=== PATIENT | female | born 1935 | race Caucasian/White ===

== ENCOUNTER 2017-02-06 14:08 | Observation (INO) ==
--- OUTSIDE RECORDS SUMMARY | 2017-02-06 14:18 | External Medical Summary | Referral Summary ---
:1935 Author Organization [facility] Address [address] [place] [address] [place] [phone] Care Team Providers Name Role Phone Joby Beyer Primary Care Physician Encounter VC Date(s): 12/20/14 - 12/20/14 [facility] [place] [phone] [place] Discharge Diagnosis: Gross hematuria Discharge Disposition: 01-Home or Self Care Attending Physician: Tea Herr PA-C Admitting Physician: Tea Herr PA-C Vital Signs Most recent to oldest [Reference Range]: 1 Temperature Tympanic [36.6-38.1 degC] 36.5 degC *LOW* (12/20/14 8:01 AM) Peripheral Pulse Rate [60-100 bpm] 80 bpm (12/20/14 8:01 AM) Respiratory Rate [14-20 br/min] 18 br/min (12/20/14 8:01 AM) Blood Pressure [90-140/60-90 mmHg] 128/86 mmHg (12/20/14 8:01 AM) SpO2 96 % (12/20/14 8:01 AM) Problem List Condition Effective Dates Status Health Status Informant Adult-onset obesity(Confirmed) Active Afib(Confirmed) Active Benign essential Active hypertension(Confirmed) Chronic osteoarthritis(Confirmed) Active GERD without esophagitis(Confirmed) Active Adequate anticoagulation on Active anticoagulant therapy(Confirmed) Hyperlipidemia(Confirmed) Active Kidney disease(Confirmed) Active Kidney stones(Confirmed) Active Knee pain, left(Confirmed) Active Breast cancer(Confirmed) 1989 Active Breast cancer(Confirmed) 01/2002 Active Osteoarthritis(Confirmed) Active Overweight(Confirmed) Active Arm skin lesion, left(Confirmed) Active Allergies, Adverse Reactions, Alerts Substance Reaction Severity Status metoclopramide Adverse Reaction-combative Active Medications acetaminophen 500 mg, Oral, q6hr, as needed for pain, 0 Refill(s) Start Date: 09/24/13 Status: Orderedcarvedilol 6.25 mg oral tablet 1 tabs, Oral, BID, # 180 tabs, 1 Refill(s), Pharmacy: [id number], 1 tabs Oral BID Start Date: 09/27/13 Status: OrderedCentrum 1 tabs, Oral, Daily, 0 Refill(s) Start Date: 09/24/13 Status: OrderedCipro 250 mg oral tablet 250 mg 1 tabs, Oral, q12hr, X 7 days, # 14 tabs, 0 Refill(s), Pharmacy: [facility], 1 tabs Oral q12hr,x7 days Start Date: 12/20/14 Stop Date: 12/27/14 Status: OrderedCozaar 50 mg oral tablet 50 mg 1 tabs, Oral, BID, # 180 tabs, 1 Refill(s), Pharmacy: [facility], 1 tabs Oral BID Start Date: 12/14/14 Status: OrderedOsteo Bi-Flex 1 tabs, Oral, Daily, 0 Refill(s) Start Date: 09/24/13 Status: OrderedPhysical Therapy Physical Therapy, See Instructions, Eval and treat as indicated for knee pain and balance issues., #1 Each, 0 Refill(s) Start Date: 12/14/14 Status: OrderedPreservation - ocuvite eye Preservation - ocuvite eye, 0 Refill(s) Start Date: 12/20/14 Status: OrderedPriLOSEC OTC 20 mg, Oral, Daily, 0 Refill(s) Start Date: 09/24/13 Status: OrderedXarelto 20 mg oral tablet 20 mg 1 tabs, Oral, qPM, # 30 tabs, 0 Refill(s) Start Date: 07/26/14 Status: Ordered Results Urinalysis Most recent to oldest [Reference Range]: 1 UA Color Red *ABN* (12/20/14 8:35 AM) UA Appear Turbid 1 *ABN* (12/20/14 8:35 AM) UA pH [5.0-8.0] 5.5 (12/20/14 8:35 AM) UA Leuk Est [Negative] Trace *ABN* (12/20/14 8:35 AM) UA Nitrite [Negative] Negative (12/20/14 8:35 AM) UA Protein [Negative] Pos 2+ *ABN* (12/20/14 8:35 AM) UA Glucose [Negative] Negative (12/20/14 8:35 AM) UA Ketones [Negative] Negative (12/20/14 8:35 AM) UA Urobilinogen 0.2 mg/dL (12/20/14 8:35 AM) UA Bili [Negative] Negative (12/20/14 8:35 AM) UA Blood Pos 3+ *ABN* (12/20/14 8:35 AM) UA Spec Grav [1.003-1.030] 1.025 (12/20/14 8:35 AM) Type Clean Catch (12/20/14 8:35 AM) UA WBC [0-4] 20-50 *ABN* (12/20/14 8:35 AM) UA RBC [0-2 /HPF] >50 /HPF 2 *ABN* (12/20/14 8:35 AM) Epithelial Cells 2-5 (12/20/14 8:35 AM) 1Result Comment: Dipstick done on supernatant.2Result Comment: Packed field. Immunizations Vaccine Date Refusal Reason tetanus/diphth/pertuss (Tdap) adult/adol 10/11/14 influenza virus vaccine, inactivated 11/17/14 influenza virus vaccine, inactivated 11/17/14 influenza virus vaccine, inactivated 11/15/13 influenza virus vaccine, live 11/11/12 influenza virus vaccine, live 10/23/11 pneumococcal 23-polyvalent vaccine 07/17/01 tetanus-diphth toxoids (Td) adult/adol 07/09/01 Procedures Procedure Date Related Diagnosis Body Site Miniscus Removal 2009 Repair 2009 Esophageal Mass Removal 01/2002 Cholecystectomy 1998 Hysterectomy 1998 Lumpectomy 02/1989 Appendectomy Chemotherapy Mastectomy Tonsillectomy Social History Social History Type Response Smoking Status Former smoker Assessment and Plan Extracted from: Title: Ambulatory Patient Education Author: Tea Herr PA-C Date: 12/20/14 Family Medicine Hematuria Hematuria is blood in your urine. It can be caused by a bladder infection, kidney infection, prostate infection, kidney stone, or cancer of your urinary tract. Infections can usually be treated with med icine, and a kidney stone usually will pass through your urine. If neither of these is the cause of your hematuria, further workup to find out the reason may be needed. It is very important that you tell your health care provider about any blood you see in your urine, even if the blood stops without treatment or happens without causing pain. Blood in your urine that eubanks ppens and then stops and then happens again can be a symptom of a very serious condition. Also, pain is not a symptom in the initial stages of many urinary cancers. HOME CARE INSTRUCTIONS Drink lots of fluid, 34 quarts a day. If you have been diagnosed with an infection, cranberry juice is especially recommended, in addition to large amounts of water. Avoid caffeine, tea, and carbonated beverages because they tend to irritate the bladder. Avoid alcohol because it may irritate the prostate. Take all medicines as directed by your health care provider. If you were prescribed an antibiotic medicine, finish it all even if you start to feel better. If you have been diagnosed with a kidney stone, follow your health care provider's instructions regarding straining your urine to catch the stone. Empty your bladder often. Avoid holding urine for long periods of time. After a bowel movement, women should cleanse front to back. Use each tissue only once. Empty your bladder before and after sexual intercourse if you are a female. SEEK MEDICAL CARE IF: You develop back pain. You have a fever. You have a feeling of sickness in your stomach (nausea) or vomiting. Your symptoms are not better in 3 days. Return sooner if you are getting worse. SEEK IMMEDIATE MEDICAL CARE IF: You develop severe vomiting and are unable to keep the medicine down. You develop severe back or abdominal pain despite taking your medicines. You begin passing a large amount of blood or clots in your urine. You feel extremely weak or faint, or you pass out. MAKE SURE YOU: Understand these instructions. Will watch your condition. Will get help right away if you are not doing well or get worse. Document Released: 01/27/2006 Document Revised: 06/13/2014 Document Reviewed: 09/27/2013 [employer] Patient Information 2015 [employer]. This information is not intended to replace advice given to you by your health care provider. Make sure you discuss any questions you have with your health care provider. No follow up information was provided. Extracted from: Title: Office Visit Note Author: Tea Herr PA-C Date: 12/20/14 Assessment/Plan Gross hematuria I did discuss the case withDr. Beyer. He had suggested obtaining ultrasound and holding Xarelto for now. She already has anappt scheduled with the urologist on the . She is to keep that appt for now.Herurine did show that she had some WBC's as well , so will treat for UTI with cipro. She is advised to let us know by the end of her Cipro if the bleeding has stopped or if continues. Ifshe no longer has the hematuria, I advised going back onto the Xarelto. If it does not, follow up with urologist. Will call pt with results of US when available. Ordered: Office Visit Level 4 Est [id number] Hematuria seeabove. Ordered: US Transvaginal/Pelvic Complete Orders: ciprofloxacin, 250 mg 1 tabs, Oral, q12hr, X 7 days, # 14 tabs, 0 Refill(s), Pharmacy: 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
--- OUTSIDE RECORDS SUMMARY | 2017-02-06 14:18 | External Medical Summary | Referral Summary ---
:1935 Author Organization [facility] Address [address] [place] [address] [place] [phone] Care Team Providers Name Role Phone Joby Beyer Primary Care Physician Encounter VC Date(s): 03/09/15 - 03/09/15 [facility] [place] [phone] [place] Discharge Diagnosis: Urinary tract infection Discharge Disposition: 01-Home or Self Care Attending Physician: Tea Herr PA-C Admitting Physician: Tea Herr PA-C Vital Signs Most recent to oldest [Reference Range]: 1 Temperature Tympanic [36.6-38.1 degC] 35.9 degC *LOW* (03/09/15 1:26 PM) Peripheral Pulse Rate [60-100 bpm] 72 bpm (03/09/15 1:26 PM) Respiratory Rate [14-20 br/min] 20 br/min (03/09/15 1:26 PM) Blood Pressure [90-140/60-90 mmHg] 136/78 mmHg (03/09/15 1:26 PM) Problem List Condition Effective Dates Status Health Status Informant Adult-onset obesity(Confirmed) Active Afib(Confirmed) Active Benign essential Active hypertension(Confirmed) Chronic osteoarthritis(Confirmed) Active CKD (chronic kidney Active disease)(Confirmed) GERD without esophagitis(Confirmed) Active Adequate anticoagulation on Active anticoagulant therapy(Confirmed) Hyperlipidemia(Confirmed) Active Elevated blood sugar(Confirmed) Active Kidney disease(Confirmed) Active Kidney stones(Confirmed) Active [...] BID, # 180 tabs, 1 Refill(s), Pharmacy: [id number], 1 tabs Oral BID Start Date: 09/27/13 Status: OrderedCentrum 1 tabs, Oral, Daily, 0 Refill(s) Start Date: 09/24/13 Status: OrderedCipro 500 mg oral tablet 500 mg 1 tabs, Oral, q12hr, X 7 days, # 14 tabs, 0 Refill(s), Pharmacy: [facility] #[id number], 1 tabs Oral q12hr,x7 days Start Date: 03/09/15 Stop Date: 03/16/15 Status: OrderedCozaar 50 mg oral tablet 50 mg 1 tabs, Oral, BID, # 180 tabs, 1 Refill(s), Pharmacy: [facility], 1 tabs Oral BID Start Date: 12/14/14 Status: OrderedNorco 5 mg-325 mg oral tablet 1 tabs, Oral, q6hr, as needed for pain, # 60 tabs, 0 Refill(s) Start Date: 12/28/14 Status: OrderedOsteo Bi-Flex 1 tabs, Oral, Daily, [...] Refill(s) Start Date: 07/26/14 Status: Ordered Results No data available for this section Immunizations Vaccine Date Refusal Reason tetanus/diphth/pertuss (Tdap) adult/adol 10/11/14 influenza virus vaccine, inactivated 11/17/14 influenza virus vaccine, inactivated 11/17/14 influenza virus vaccine, inactivated 11/15/13 influenza virus vaccine, live 11/11/12 influenza virus vaccine, live 10/23/11 pneumococcal 23-polyvalent vaccine 07/17/01 tetanus-diphth toxoids (Td) adult/adol 07/09/01 Procedures Procedure Date Related Diagnosis Body Site Miniscus Removal 2008 Repair 2009 Esophageal Mass Removal 01/2002 Cholecystectomy 1998 Hysterectomy 1998 Lumpectomy 02/1989 Appendectomy Chemotherapy Colonoscopy Mastectomy Tonsillectomy Social History Social History Type Response Smoking Status Former smoker Assessment and Plan Extracted from: Title: Ambulatory Patient Education Author: Tea Herr PA-C Date: Family Medicine Urinary Tract Infection Urinary tract infections (UTIs) can develop anywhere along your urinary tract. Your urinary tract is your body's drainage system for removing wastes and extra water. Your urinary tract includes two kidn eys, two ureters, a bladder, and a urethra. Your kidneys are a pair of haynes- shaped organs. Each kidney is about the size of your fist. They are located below your ribs, one on each side of your spine. CAUSES Infections are caused by microbes, which are microscopic organisms, including fungi, viruses, and bacteria. These organisms are so small that they can only be seen through a microscope. Bacteria are the microbes that most commonly cause UTIs. SYMPTOMS Symptoms of UTIs may vary by age and gender of the patient and by the location of the infection. Symptoms in young women typically include a frequent and intense urge to urinate and a painful, burning f eeling in the bladder or urethra during urination. Older women and men are more likely to be tired, shaky, and weak and have muscle aches and abdominal pain. A fever may mean the infection is in your ki dneys. Other symptoms of a kidney infection include pain in your back or sides below the ribs, nausea, and vomiting. DIAGNOSIS To diagnose a UTI, your caregiver will ask you about your symptoms. Your caregiver also will ask to provide a urine sample. The urine sample will be tested for bacteria and white blood cells. White bloo d cells are made by your body to help fight infection. TREATMENT Typically, UTIs can be treated with medication. Because most UTIs are caused by a bacterial infection, they usually can be treated with the use of antibiotics. The choice of antibiotic and length of edlon atment depend on your symptoms and the type of bacteria causing your infection. HOME CARE INSTRUCTIONS If you were prescribed antibiotics, take them exactly as your caregiver instructs you. Finish the medication even if you feel better after you have only taken some of the medication. Drink enough water and fluids to keep your urine clear or pale yellow. Avoid caffeine, tea, and carbonated beverages. They tend to irritate your bladder. Empty your bladder often. Avoid holding urine for long periods of time. Empty your bladder before and after sexual intercourse. After a bowel movement, women should cleanse from front to back. Use each tissue only once. SEEK MEDICAL CARE IF: You have back pain. You develop a fever. Your symptoms do not begin to resolve within 3 days. SEEK IMMEDIATE MEDICAL CARE IF: You have severe back pain or lower abdominal pain. You develop chills. You have nausea or vomiting. You have continued burning or discomfort with urination. MAKE SURE YOU: Understand these instructions. Will watch your condition. Will get help right away if you are not doing well or get worse. Document Released: 11/06/2005 Document Revised: 07/28/2012 Document Reviewed: 03/06/2012 [facility] Patient Information 2015 [employer]. This information is not intended to replace advice given to you by your health care provider. Make sure you discuss any questions you have with your health care provider. No follow up information was provided. Extracted from: Title: Office Visit Note- UTI Author: Tea Herr PA-C Date: 03/09/15 Assessment/Plan Urinary tract infection Will treat with Cipro, and pt may continue with AZO just for 2 more days if necessary. Pt does get these recurrently, and she is wanting to a repeat UA after her abx to documen t clearance. D/w pt that we will do a urine culture, and if it shows susceptibility and she is not having sx that it should be resolved and repeat UA not needed. If urine culture contaminated or not-sheree pardo, may repeat UA 3 days after done with cipro. Pt advised to push fluids. Ordered: Office Visit Level 3 Est [id number] Orders: ciprofloxacin, 500 mg 1 tabs, Oral, q12hr, X 7 days, # 14 tabs, 0 Refill(s), Pharmacy: [id number], 1 tabs Oral q12hr,x7 days
--- OUTSIDE RECORDS SUMMARY | 2017-02-06 14:18 | External Medical Summary | Referral Summary ---
:1935 Author [facility] Address [address] [place] [address] [place] [phone] Care Team Providers Name Role Phone Joby Beyer Primary Care Physician Encounter VC Date(s): 11/17/14 - 11/17/14 [facility] [address] [place] [phone] [place] Discharge Disposition: 01-Home or Self Care Attending Physician: Joby Beyer MD Admitting Physician: Joby Beyer MD Vital Signs Most recent to oldest [Reference Range]: 1 Blood Pressure [90-140/60-90 mmHg] 140/90 mmHg (11/17/14 1:05 PM) Problem List Condition Effective Dates Status [...] BID, # 180 tabs, 1 Refill(s), Pharmacy: [facility], 1 tabs Oral BID Start Date: 09/27/13 Status: OrderedCentrum 1 tabs, Oral, Daily, 0 Refill(s) Start Date: 09/24/13 Status: OrderedCozaar 50 mg oral tablet 50 mg 1 tabs, Oral, BID, # 180 tabs, 1 Refill(s), Pharmacy: [facility], 1 tabs Oral BID [...] Extracted from: Title: Ambulatory Patient Education Author: Joby Beyer MD Date: Family Medicine Breast Biopsy A breast biopsy is a procedure where a sample of breast tissue is removed from your breast. The tissue is examined under a microscope to see if cancerous cells are present. A breast biopsy is done when there is: Any undiagnosed breast mass (tumor). Nipple abnormalities, dimpling, crusting, or ulcerations. Abnormal discharge from the nipple, especially blood. Redness, swelling, and pain of the breast. Calcium deposits (calcifications) or abnormalities seen on a mammogram, ultrasound result, or results of magnetic resonance imaging (MRI). Suspicious changes in the breast seen on your mammogram. If the tumor is found to be cancerous (malignant), a breast biopsy can help to determine what the best treatment is for you. There are many different types of breast biopsies. Talk to your caregiver about your options and which type is best for you. LET YOUR CAREGIVER KNOW ABOUT: Allergies to food or medicine. Medicines taken, including vitamins, herbs, eyedrops, fvov-ygs-wohokoi medicines, and creams. Use of steroids (by mouth or creams). Previous problems with anesthetics or numbing medicines. History of bleeding problems or blood clots. Previous surgery. Other health problems, including diabetes and kidney problems. Any recent colds or infections. Possibility of , if this applies. RISKS AND COMPLICATIONS Bleeding. Infection. Allergy to medicines. Bruising and swelling of the breast. Alteration in the shape of the breast. Not finding the lump or abnormality. Needing more surgery. BEFORE THE PROCEDURE Arrange for someone to drive you home after the procedure. Do not smoke for 2 weeks before the procedure. Stop smoking, if you smoke. Do not drink alcohol for 24 hours before procedure. Wear a good support bra to the procedure. PROCEDURE You may be given a medicine to numb the breast area (local anesthesia) or a medicine to make you sleep (general anesthesia) during the procedure. The following are the different types of biopsies that can be performed. Fine-needle aspirationA thin needle is attached to a syringe and inserted into the breast lump. Fluid and cells are removed and then looked at under a microscope. If the breast lump cannot be fe lt, an ultrasound may be used to help locate the lump and place the needle in the correct area. Core needle biopsyA wide, hollow needle (core needle) is inserted into the breast lump 36 times to get tissue samples or cores. The samples are removed. The needle is usually placed in the correct area by using an ultrasound or X-ray. Stereotactic biopsyX-ray equipment and a computer are used to analyze X -ray pictures of the breast lump. The computer then finds exactly where the core needle needs to be inserted. Tissue samples are removed. Vacuum-assisted biopsyA small incision (less than inch) is made in your breast. A biopsy device that includes a hollow needle and vacuum is passed through the incision and into the breast tis marie. The vacuum gently draws abnormal breast tissue into the needle to remove it. This type of biopsy removes a larger tissue sample than a regular core needle biopsy. No stitches are needed, and there is usually little scarring. Ultrasound-guided core needle biopsyA high frequency ultrasound helps guide the core needle to the area of the mass or abnormality. An incision is made to insert the needle. Tissue samples are removed. Open biopsyA larger incision is made in the breast. Your caregiver will attempt to remove the whole breast lump or as much as possible. AFTER THE PROCEDURE You will be taken to the recovery area. If you are doing well and have no problems, you will be allowed to go home. You may notice bruising on your breast. This is normal. Your caregiver may apply a pressure dressing on your breast for 2448 hours. A pressure dressing is a bandage that is wrapped tightly around the chest to stop fluid from collecting underneath tissues. Document Released: 01/27/2006 Document Revised: 05/24/2013 Document Reviewed: 02/27/2012 [facility] Patient Information 2015 [facility]aryConstant Contact, [facility]. This information is not intended to replace advice given to you by your health care provider. Make sure you discuss any questions you have with your health care provider. No follow up information was provided. Extracted from: Title: Office Visit Note Author: Joby Beyer MD Date: 11/17/14 Assessment/Plan Benign essential hypertension This issue is stable and appropriate refills, lab, and f/u have been discussed. The patient reports their blood pressure has been stable at home and is not having an y significant or related problems. There has been no chest pain, chest pressure , soa/[place]عر[place]. Breast cancer This issue is stable and appropriate refills, lab, and f/u have been discussed. Finger laceration The patient's issue is nearly or completely resolved. There is no further issues or testing desired by them at this time. Sutures removed. Routine wound care. Tdap at [facility] on11/05. Visit for suture removal See above. The patient was given the vaccines requested per protocol and according to those needed for school/family/college/ etc. Flu vaccine given.
--- OUTSIDE RECORDS SUMMARY | 2017-02-06 14:18 | External Medical Summary | Referral Summary ---
:1935 Author Organization [facility] Address [address] [place] [address] [place] [phone] Care Team Providers Name Role Phone Joby Beyer Primary Care Physician Encounter VC Date(s): 01/13/15 - 01/13/15 [facility] [place] [phone] [place] Discharge Disposition: 01-Home or Self Care Attending Physician: Joby Beyer MD Admitting Physician: Joby Beyer MD Vital Signs Most recent to oldest [Reference Range]: 1 Blood Pressure [90-140/60-90 mmHg] 158/80 mmHg *HI* (01/13/15 8:27 AM) Problem List Condition Effective Dates Status [...] BID, # 180 tabs, 1 Refill(s), Pharmacy: [id number], 1 tabs Oral BID Start Date: 09/27/13 Status: OrderedCentrum 1 tabs, Oral, Daily, 0 Refill(s) Start Date: 09/24/13 Status: OrderedCozaar 50 mg oral tablet 50 mg 1 tabs, Oral, BID, # 180 tabs, 1 Refill(s), Pharmacy: [facility], 1 tabs Oral BID [...] Refill(s) Start Date: 07/26/14 Status: Ordered Results Chemistry Most recent to oldest [Reference Range]: 1 Sodium Lvl [135-144 mEq/L] 141 mEq/L (01/13/15 9:28 AM) Potassium Lvl [3.5-5.2 mEq/L] 4.0 mEq/L (01/13/15 9:28 AM) Chloride [99-111 mEq/L] 108 mEq/L (01/13/15 9:28 AM) CO2 [22-31 mEq/L] 24 mEq/L (01/13/15 9:28 AM) AGAP [3-20] 9 (01/13/15 9:28 AM) BUN [10-20 mg/dL] 19 mg/dL (01/13/15 9:28 AM) Glucose Lvl [70-99 mg/dL] 96 mg/dL (01/13/15 9:28 AM) Creatinine Lvl [0.57-1.11 mg/dL] 0.79 mg/dL (01/13/15 9:28 AM) eGFR [>60 mL/min] >60 mL/min 1 (01/13/15 9:28 AM) Calcium Lvl [8.9-10.5 mg/dL] 9.3 mg/dL (01/13/15 9:28 AM) 1Result Comment: Multiply eGFR results by 1.21 for race.Urinalysis Most recent to oldest [Reference Range]: 1 UA Color Yellow (01/13/15 9:40 AM) UA Appear Clear (01/13/15 9:40 AM) UA pH [5.0-8.0] 6.0 (01/13/15 9:40 AM) UA Leuk Est [Negative] Negative (01/13/15 9:40 AM) UA Nitrite [Negative] Negative (01/13/15 9:40 AM) UA Protein [Negative] Negative (01/13/15 9:40 AM) UA Glucose [Negative] Negative (01/13/15 9:40 AM) UA Ketones [Negative] Negative (01/13/15 9:40 AM) UA Urobilinogen [<1.0 mg/dL] 0.2 mg/dL (01/13/15 9:40 AM) UA Bili [Negative] Negative (01/13/15 9:40 AM) UA Blood [Negative] Negative (01/13/15 9:40 AM) UA Spec Grav [1.003-1.030] 1.019 (01/13/15 9:40 AM) Type Voided (01/13/15 9:40 AM) Immunizations Vaccine Date Refusal Reason tetanus/diphth/pertuss (Tdap) [...] Joby Beyer MD Date: Family Medicine Breast Cancer Survivor Follow-up Breast cancer treatment aims to get rid of all cancer cells, but sometimes a few remain in the body. These cells can then grow and cause the cancer to return (recur). If this happens, the goal is to fin d the cancer as soon as possible. Cancer can recur just a few months after treatment or years later. Most cases of recurrent breast cancer develop 35 years after treatment. WILL MY CANCER RETURN? There is no way to know if your breast cancer will return. However, your chance of developing recurrent breast cancer is greater if you had: Breast cancer before 60 years of age. Breast cancer that involved the lymph nodes. A tumor that was bigger than 2 inches (5 cm). A high-grade tumor. These are tumors that grow more quickly than other types of tumors. A close tumor margin. This means the space between the tumor and normal, noncancerous cells was small. Inflammatory breast cancer. HER2 cancer. Surgery to remove the tumor but not the entire breast (lumpectomy) and no radiation therapy. SYMPTOMS OF RECURRENT BREAST CANCER Examine your breasts every month. You may find it helpful to do this on the same day each month and yamile your calendar as a reminder. Let your health care provider know immediately if you have any signs or symptoms of recurrent breast cancer. Signs and symptoms of recurrent breast cancer vary. It depends on where the cancer is and how the original cancer was treated. Symptoms of a cancer that comes back in the same spot (local recurrence) after a lumpectomy, or a recurrence in the opposite breast may include: A new lump or thickening in the breast. A change in the way the skin of the breast looks (such as a rash, dimpling , or wrinkling). Redness or swelling of the breast. Changes in the nipple (such as it may be red, puckered, swollen, or leaking fluid). Symptoms of a recurrence after breast removal surgery (mastectomy) may include: A lump or thickening under the skin. A thickening around the mastectomy scar. Symptoms of a cancer that comes back in the lymph nodes near the breast ( regional recurrence) may include: A lump under the arm or above the collarbone. Swelling of the arm. Pain in the arm, shoulder, or chest. Numbness in the hand or arm. Symptoms of cancer that comes back in an area of the body far away from the original cancer site (distant recurrence) may include: A cough that does not go away. Trouble breathing or shortness of breath. Pain in the bones or the chest. This is pain that lasts or does not improve with rest and medicine. Headaches. Sudden vision problems. Dizziness. Nausea or vomiting. Weight loss. Persistent abdominal pain. Changes in bowel movements or blood in the stool. Yellowing of the skin or eyes (jaundice). Blood in the urine or bloody vaginal discharge. FOLLOWING UP WITH YOUR HEALTH CARE PROVIDER Decide who your primary health care provider will be. Most people continue to see their cancer specialist (oncologist) every 36 months for the first year after cancer treatment. At some point, you ma y want to go back to seeing a family health care provider instead of your oncologist for regular checkups. Many women do this about 1 year after getting a breast cancer diagnosis. You would still need t o see your oncologist as directed. You should also: Keep a schedule of appointments for the tests and exams you need ( including physical exams, breast exams, and exams of the lymph nodes). For the first 3 years after being treated for breast cancer, see your health care provider every 36 months. In the fourth and fifth years after being treated for breast cancer, see your health care provider every 612 months. From 5 years on after your breast cancer treatment, see your health care provider at least once a year. Continue to have regular breast X-rays (mammograms), even if you had a mastectomy. Get a mammogram 1 year after the mammogram that first detected breast cancer. Get a mammogram every 612 months after that or as often as your health care provider suggests. Have a pelvic exam every year or as often as your health care provider suggests. Some tests are not recommended for routine screening. Someone recovering from breast cancer does not need to have these tests if there are no problems. The tests have risks, such as radiation expos ure, and can be costly. The risks of these tests are thought to be greater than the benefits: Blood tests. Chest X-rays. Bone scans. Liver ultrasound. CT. MRI. Positron emission tomography (PET scan). SEEK MEDICAL CARE IF: You have any signs or symptoms of recurrent breast cancer. You are taking a medicine prescribed to treat your breast cancer and have vaginal bleeding. You discover new lumps in your breast. You have headaches, bone, chest, or abdominal pain. You have shortness of breath. You have a cough that does not go away. You have discharge from your nipple. You have a rash on your breast. SEEK IMMEDIATE MEDICAL CARE IF: You have trouble breathing. You have chest pain. Document Released: 09/25/2011 Document Revised: 02/01/2014 Document Reviewed: 12/03/2013 ExitCare Patient Information 2015 [employer]. This information is not intended to replace advice given to you by your health care provider. Make sure you discuss any questions you have with your health care provider. No follow up information was provided. Extracted from: Title: Office Visit Note Author: Joby Beyer MD Date: 01/13/15 Assessment/Plan Adequate anticoagulation on anticoagulant therapy This issue was reviewed, appears stable, and current therapy continued except as mentioned. Appropriate lab was reviewed from the most recent approp riate entry and lab was ordered if needed in the cpoe/nursing orders, and follow up recommended generally in 90 days and no later then six months. Stable on xarelto. Benign essential hypertension This issue was reviewed, appears stable, and current therapy continued except as mentioned. Appropriate lab was reviewed from the most recent appropriate entry and lab was ordered if needed in the cpoe/nursing orders, and follow up recommended generally in 90 days and no later then six months. The patient reports their blood pressure has been stable at home and i s not having any significant or related problems. There has been no chest pain , chest pressure, soa/العراقي. Breast cancer This issue was reviewed, appears stable, and current therapy continued except as mentioned. Appropriate lab was reviewed from the most recent appropriate entry and lab was ordered if n eeded in the cpoe/nursing orders, and follow up recommended generally in 90 days and no later then six months. Seeing [address] Blair. Gets regular CT scans and has one pending. Elevated blood sugar This issue was reviewed, appears stable, and current therapy continued except as mentioned. Appropriate lab was reviewed from the most recent appropriate entry and lab was order ed if needed in the cpoe/nursing orders, and follow up recommended generally in 90 days and no later then six months. Lab reviewed. Kidney disease This issue was reviewed, appears stable, and current therapy continued except as mentioned. Appropriate lab was reviewed from the most recent appropriate entry and lab was ordered if needed in the cpoe/nursing orders, and follow up recommended generally in 90 days and no later then six months. Cr at [facility] was 1.5. Kidney stones The patient's issue is nearly or completely resolved. There is no further issues or testing desired by them at this time. Stone analysis at [facility] still pending? Declines urology con sult at this time. UA, lab, KUB pending to look for any residula KS/bladder stone. To Urology for anything retained. Total time spent over 35 minutes today in coordination. Likely she will have aCT scan anyway with her cancer surveillance. The patient's outside physician records were reviewed. Any pertinent outside records, lab, and xrays were also reviewed if available. IMPRESSION: 1. Idiirkmb-iy-zzdvzh right hydronephrosis and right hydroureter. This right obstructive uropathy is secondary to some right distal ureteral calculi, one measuring approximately 3 mm in the right distal ureter and the second measuring approximately 8 mm at the right ureterovesical junction. Associated right perinephric stranding is seen. 2. Stable 3 cm heterogeneously enhancing right adrenal mass. 3. Senescent abdomen with additional nonemergent findings as described above. [1] Ordered: Basic Metabolic Panel Urinalysis with Culture if Indicated XR Abdomen AP Osteoarthritis This issue was reviewed, appears stable, and current therapy continued except as mentioned. Appropriate lab was reviewed from the most recent appropriate entry and lab was ordered if needed in the cpoe/nursing orders, and follow up recommended generally in 90 days and no later then six months.
--- OUTSIDE RECORDS SUMMARY | 2017-02-06 14:19 | External Medical Summary | Referral Summary ---
:1935 Author [facility] Address [address] [place] [address] [place] [phone] Care Team Providers Name Role Phone Joby Beyer Primary Care Physician Encounter VC Date(s): 12/11/15 - 12/11/15 [facility] [place] [phone] [place] Discharge Disposition: 01-Home or Self Care Attending Physician: Joby Beyer MD Admitting Physician: Joby Beyer MD Vital Signs No data available for this section Problem List Condition Effective Dates Status Health [...] pain, 0 Refill(s) Start Date: 09/24/13 Status: OrderedArthritis Pain 650 mg, Oral, BID, 0 Refill(s) Start Date: 09/06/15 Status: Orderedcarvedilol 12.5 mg oral tablet 12.5 mg 1 tabs, Oral, BID, # 180 tabs, 1 Refill(s), Pharmacy: [facility], 1 tabs Oral BID Start Date: 09/06/15 Status: OrderedCentrum 1 tabs, Oral, Daily, 0 Refill(s) Start Date: 09/24/13 Status: OrderedCozaar 50 mg oral tablet 50 mg 1 tabs, Oral, BID, # 180 tabs, 1 Refill(s), Pharmacy: [facility], 1 tabs Oral BID Start Date: 09/06/15 Status: OrderedOsteo Bi-Flex 1 tabs, Oral, Daily, [...] (Tdap) adult/adol 10/11/14 influenza virus vaccine, inactivated 12/11/15 influenza virus vaccine, inactivated 11/17/14 influenza virus vaccine, inactivated 11/17/14 influenza virus vaccine, inactivated 11/15/13 influenza virus vaccine, live 11/11/12 influenza virus vaccine, live 10/23/11 pneumococcal 13-valent conjugate vaccine 09/06/15 pneumococcal 23-polyvalent vaccine 07/17/01 tetanus-diphth toxoids (Td) adult/adol 07/09/01 Procedures Procedure Date Related Diagnosis Body Site Miniscus Removal 2009 Repair 2009 Esophageal Mass Removal 01/2002 Cholecystectomy 1998 Hysterectomy 1998 Lumpectomy 02/1989 Appendectomy Chemotherapy Colonoscopy Mastectomy Tonsillectomy Social History Social History Type Response Smoking Status Former smoker Assessment and Plan No data available for this section
--- OUTSIDE RECORDS SUMMARY | 2017-02-06 14:19 | External Medical Summary | Referral Summary ---
:1935 Author Organization [facility] Address [address] [place] [address] [place] [phone] Care Team Providers Name Role Phone Joby Beyer Primary Care Physician Encounter VC Date(s): 12/14/14 - 12/14/14 [facility] [address] [place] [phone] [place] Discharge Disposition: 01-Home or Self Care Attending Physician: Joby Beyer MD Admitting Physician: Joby Beyer MD Vital Signs Most recent to oldest [Reference Range]: 1 Blood Pressure [90-140/60-90 mmHg] 128/80 mmHg (12/14/14 9:05 AM) Problem List Condition Effective Dates Status [...] BID, # 180 tabs, 1 Refill(s), Pharmacy: [id number], 1 tabs Oral BID Start Date: 09/27/13 Status: OrderedCentrum 1 tabs, Oral, Daily, 0 Refill(s) Start Date: 09/24/13 Status: OrderedCozaar 50 mg oral tablet 50 mg 1 tabs, Oral, BID, # 180 tabs, 1 Refill(s), Pharmacy: [facility], 1 tabs Oral BID Start Date: 12/14/14 Status: OrderedOsteo Bi-Flex 1 tabs, Oral, Daily, 0 Refill(s) Start Date: 09/24/13 Status: OrderedPhysical Therapy Physical Therapy, See Instructions, Eval and treat as indicated for knee pain and balance issues., #1 Each, 0 Refill(s) Start Date: 12/14/14 Status: OrderedPriLOSEC OTC 20 mg, Oral, Daily, [...] Author: Joby Beyer MD Date: Family Medicine Arthralgia Your caregiver has diagnosed you as suffering from an arthralgia. Arthralgia means there is pain in a joint. This can come from many reasons including: Bruising the joint which causes soreness (inflammation) in the joint. Wear and tear on the joints which occur as we grow older (osteoarthritis). Overusing the joint. Various forms of arthritis. Infections of the joint. Regardless of the cause of pain in your joint, most of these different pains respond to anti-inflammatory drugs and rest. The exception to this is when a joint is infected, and these cases are treated with antibiotics, if it is a bacterial infection. HOME CARE INSTRUCTIONS Rest the injured area for as long as directed by your caregiver. Then slowly start using the joint as directed by your caregiver and as the pain allows. Crutches as directed may be useful if the an kles, knees or hips are involved. If the knee was splinted or casted, continue use and care as directed. If an stretchy or elastic wrapping bandage has been applied today, it should be removed and re-ap plied every 3 to 4 hours. It should not be applied tightly, but firmly enough to keep swelling down. Watch toes and feet for swelling, bluish discoloration, coldness, numbness or excessive pain. If any of these problems (symptoms) occur, remove the obi bandage and re-apply more loosely. If these symptoms persist, contact your caregiver or return to this location. For the first 24 hours, keep the injured extremity elevated on pillows while lying down. Apply ice for 15-20 minutes to the sore joint every couple hours while awake for the first half day. Then 03-04 times per day for the first 48 hours. Put the ice in a plastic bag and place a towel between the bag of ice and your skin. Wear any splinting, casting, elastic bandage applications, or slings as instructed. Only take auju-zoj-ebuxdys or prescription medicines for pain, discomfort , or fever as directed by your caregiver. Do not use aspirin immediately after the injury unless instructed by your physicia n. Aspirin can cause increased bleeding and bruising of the tissues. If you were given crutches, continue to use them as instructed and do not resume weight bearing on the sore joint until instructed. Persistent pain and inability to use the sore joint as directed for more than 2 to 3 days are warning signs indicating that you should see a caregiver for a follow-up visit as soon as possible. Initiall y, a hairline fracture (break in bone) may not be evident on X-rays. Persistent pain and swelling indicate that further evaluation, non-weight bearing or use of the joint (use of crutches or slings as i nstructed), or further X-rays are indicated. X-rays may sometimes not show a small fracture until a week or 10 days later. Make a follow-up appointment with your own caregiver or one to whom we have ref erred you. A radiologist (specialist in reading X-rays) may read your X-rays. Make sure you know how you are to obtain your X-ray results. Do not assume everything is normal if you do not hear from us. SEEK MEDICAL CARE IF: Bruising, swelling, or pain increases. SEEK IMMEDIATE MEDICAL CARE IF: Your fingers or toes are numb or blue. The pain is not responding to medications and continues to stay the same or get worse. The pain in your joint becomes severe. You develop a fever over 102 F (38.9 C). It becomes impossible to move or use the joint. MAKE SURE YOU: Understand these instructions. Will watch your condition. Will get help right away if you are not doing well or get worse. Document Released: 01/27/2006 Document Revised: 04/20/2012 Document Reviewed: 09/14/2008 ExitCare Patient Information 2015 [employer]. This information is not intended to replace advice given to you by your health care provider. Make sure you discuss any questions you have with your health care provider. No follow up information was provided. Extracted from: Title: Office Visit Note Author: Joby Beyer MD Date: 12/14/14 Assessment/Plan Arm skin lesion, left To Dr. RAMIREZ for removal. RefusedDerm. Benign essential hypertension This issue was reviewed, appears stable, and current therapy continued accept as mentioned. Appropriate lab was reviewed from the most recent entry and lab ordered in t he cpoe/nursing orders, and follow up arranged. The patient reports their blood pressure has been stable at home and is not having any significant or related problems. There has been no chest pain, chest pressure, soa/العراقي. Breast cancer The patient's issue is nearly or completely resolved. There is no further issues or testing desired by them at this time. Knee pain, left To Dr. Tay. She declined other options. Osteoarthritis This issue was reviewd, appears stable, and current therapy continued accept as mentioned. Appropriate lab was reviewed from the most recent entry and lab ordered in the cpoe/nursing orders, and follow up arranged. Overweight Diet and exercise as tolerated and feasible. Consider medication when interested. Orders: losartan, 50 mg 1 tabs, Oral, BID, # 180 tabs, 1 Refill(s), Pharmacy : [facility], 1 tabs Oral BID Misc Medication, Physical Therapy, See Instructions, Eval and treat as indicated for knee pain and balance issues., # 1 Each, 0 Refill(s) Addendum by Joby Beyer MD on She did agree to a PT script/therapy for left December 14, 2014 09:48:20 [employer] knee pain.
--- OUTSIDE RECORDS SUMMARY | 2017-02-06 14:19 | External Medical Summary | Referral Summary ---
:1935 Author Organization [facility] Address [address] [place] [address] [place] [phone] Care Team Providers Name Role Phone Joby Beyer Primary Care Physician Encounter VC Date(s): 01/31/15 - 01/31/15 [facility] [address] [place] [address] [place] [phone] [place] Discharge Diagnosis: Visit for suture removal Discharge Disposition: 01-Home or Self Care Attending Physician: Gloria Jolly APRN Admitting Physician: Gloria Jolly APRN Vital Signs Most recent to oldest [Reference Range]: 1 Temperature Tympanic [36.6-38.1 degC] 36.4 degC *LOW* (01/31/15 9:54 AM) Problem List Condition Effective Dates Status [...] BID, # 180 tabs, 1 Refill(s), Pharmacy: [id number], 1 tabs Oral BID Start Date: 09/27/13 Status: OrderedCentrum 1 tabs, Oral, Daily, 0 Refill(s) Start Date: 09/24/13 Status: OrderedCozaar 50 mg oral tablet 50 mg 1 tabs, Oral, BID, # 180 tabs, 1 Refill(s), Pharmacy: [facility], 1 tabs Oral BID [...] smoker Assessment and Plan Extracted from: Title: Office Visit Note Author: Gloria Jolly [employer] Date: 01/31/15 Assessment/Plan 1.Visit for suture removal 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 Sutures removed without difficulty and antibiotic ointment applied. I would suggest you make an appointmentfor excision of thelesion on the right forearmat your convenience. Ordered: Postoperative Est [id number]
--- OUTSIDE RECORDS SUMMARY | 2017-02-06 14:19 | External Medical Summary | Referral Summary ---
:1935 Author Organization [facility] Address [address] [place] [address] [place] [phone] Care Team Providers Name Role Phone KatymarvJoby Primary Care Physician Encounter VC Date(s): 07/26/14 - 07/26/14 [facility] [place] [phone] [place] Discharge Diagnosis: Bruising Discharge Disposition: 01-Home or Self Care Attending Physician: Merari Reyes APRN Admitting Physician: Merari Reyes APRN Vital Signs Most recent to oldest [Reference Range]: 1 Temperature Tympanic [36.6-38.1 degC] 36.2 degC *LOW* (07/26/14 2:48 PM) Peripheral Pulse Rate [60-100 bpm] 72 bpm (07/26/14 2:48 PM) Blood Pressure [90-140/60-90 mmHg] 128/66 mmHg (07/26/14 2:48 PM) Problem List Condition Effective Dates Status [...] BID, # 180 tabs, 1 Refill(s), Pharmacy: [id number], 1 tabs Oral BID Start Date: 09/27/13 Status: OrderedCentrum 1 tabs, Oral, Daily, 0 Refill(s) Start Date: 09/24/13 Status: OrderedCozaar 50 mg oral tablet 50 mg 1 tabs, Oral, BID, # 180 tabs, 1 Refill(s), Pharmacy: [facility], 1 tabs [...] Diagnosis Body Site Miniscus Removal 2008 Repair 2008 Esophageal Mass Removal 01/2002 Cholecystectomy 1998 Hysterectomy 1998 Lumpectomy 02/1989 Appendectomy Chemotherapy Colonoscopy Mastectomy Tonsillectomy Social History Social History Type Response Smoking Status Former smoker Assessment and Plan No data available for this section
--- OUTSIDE RECORDS SUMMARY | 2017-02-06 14:19 | External Medical Summary | Referral Summary ---
:1935 Author Organization [facility] Address [address] [place] [address] [place] [id number] Care Team Providers Name Role Phone Joby Beyer Primary Care Physician Encounter [facility] [phone] Date(s): 09/06/15 - 09/06/15 [address] [facility] [address] [place] [phone] Discharge Diagnosis: Afib Discharge Diagnosis: GERD without esophagitis Discharge Diagnosis: Benign essential hypertension Discharge Diagnosis: Encounter for immunization Discharge Diagnosis: Breast cancer Discharge Disposition: 01-Home or Self Care Attending Physician: Tea Herr PA-C Admitting Physician: Tea Herr PA-C Vital Signs Most recent to oldest [Reference Range]: 1 Peripheral Pulse Rate [60-100 bpm] 64 bpm (09/06/15 8:47 AM) Blood Pressure [90-140/60-90 mmHg] 122/68 mmHg (09/06/15 8:47 AM) Problem List Condition Effective Dates Status [...] BID, # 180 tabs, 1 Refill(s), Pharmacy: [facility], 1 tabs Oral BID Start Date: 09/06/15 Status: OrderedCentrum 1 tabs, Oral, Daily, 0 Refill(s) Start Date: 09/24/13 Status: OrderedCozaar 50 mg oral tablet 50 mg 1 tabs, Oral, BID, # 180 tabs, 1 Refill(s), Pharmacy: [facility], 1 tabs Oral BID Start Date: [...] Diagnosis Body Site Miniscus Removal 2009 Repair 2008 Esophageal Mass Removal 01/2002 Cholecystectomy 1998 Hysterectomy 1998 Lumpectomy 02/1989 Appendectomy Chemotherapy Colonoscopy Mastectomy Tonsillectomy Social History Social History Type Response Smoking Status Former smoker Assessment and Plan Extracted from: Title: Ambulatory Patient Education Author: Tea Herr PA-C Date: Cardiovascular Atrial Fibrillation Atrial fibrillation is a type of irregular heart rhythm (arrhythmia). During atrial fibrillation, the upper chambers of the heart (atria) quiver continuously in a chaotic pattern. This causes an irregular and often rapid heart rate. Atrial fibrillation is the result of the heart becoming overloaded with disorganized signals that tell it to beat. These signals are normally released one at a time by a part of the right atrium called the sinoatrial node. They then travel from the atria to the lower chambers of the heart (ventricles), causing the atria and ventricles to contract and pump blood as they pass. In atrial fibrillation, pa rts of the atria outside of the sinoatrial node also release these signals. This results in two problems. First, the atria receive so many signals that they do not have time to fully contract. Second, t he ventricles, which can only receive one signal at a time, beat irregularly and out of rhythm with the atria. There are three types of atrial fibrillation: Paroxysmal. Paroxysmal atrial fibrillation starts suddenly and stops on its own within a week. Persistent. Persistent atrial fibrillation lasts for more than a week. It may stop on its own or with treatment. Permanent. Permanent atrial fibrillation does not go away. Episodes of atrial fibrillation may lead to permanent atrial fibrillation. Atrial fibrillation can prevent your heart from pumping blood normally. It increases your risk of stroke and can lead to heart failure. CAUSES Heart conditions, including a heart attack, heart failure, coronary artery disease, and heart valve conditions. Inflammation of the sac that surrounds the heart (pericarditis). Blockage of an artery in the lungs (pulmonary embolism). Pneumonia or other infections. Chronic lung disease. Thyroid problems, especially if the thyroid is overactive ( hyperthyroidism). Caffeine, excessive alcohol use, and use of some illegal drugs. Use of some medicines, including certain decongestants and diet pills. Heart surgery. defects. Sometimes, no cause can be found. When this happens, the atrial fibrillation is called lone atrial fibrillation. The risk of complications from atrial fibrillation increases if you have lone atrial fibrillation and you are age 60 years or older. RISK FACTORS Heart failure. Coronary artery disease. Diabetes mellitus. High blood pressure (hypertension). Obesity. Other arrhythmias. Increased age. SIGNS AND SYMPTOMS A feeling that your heart is beating rapidly or irregularly. A feeling of discomfort or pain in your chest. Shortness of breath. Sudden light-headedness or weakness. Getting tired easily when exercising. Urinating more often than normal (mainly when atrial fibrillation first begins). In paroxysmal atrial fibrillation, symptoms may start and suddenly stop. DIAGNOSIS Your health care provider may be able to detect atrial fibrillation when taking your pulse. Your health care provider may have you take a test called an ambulatory electrocardiogram (ECG). An ECG record s your heartbeat patterns over a 24-hour period. You may also have other tests , such as: Transthoracic echocardiogram (TTE). During echocardiography, sound waves are used to evaluate how blood flows through your heart. Transesophageal echocardiogram (MUKUND). Stress test. There is more than one type of stress test. If a stress test is needed, ask your health care provider about which type is best for you. Chest X-ray exam. Blood tests. Computed tomography (CT). TREATMENT Treatment may include: Treating any underlying conditions. For example, if you have an overactive thyroid, treating the condition may correct atrial fibrillation. Taking medicine. Medicines may be given to control a rapid heart rate or to prevent blood clots, heart failure, or a stroke. Having a procedure to correct the rhythm of the heart: Electrical cardioversion. During electrical cardioversion, a controlled , low-energy shock is delivered to the heart through your skin. If you have chest pain, very low blood pressure, or sudden h eart failure, this procedure may need to be done as an emergency. Catheter ablation. During this procedure, heart tissues that send the signals that cause atrial fibrillation are destroyed. Surgical ablation. During this surgery, thin lines of heart tissue that carry the abnormal signals are destroyed. This procedure can either be an open- heart surgery or a minimally invasive surger y. With the minimally invasive surgery, small cuts are made to access the heart instead of a large opening. Pulmonary venous isolation. During this surgery, tissue around the veins that carry blood from the lungs (pulmonary veins) is destroyed. This tissue is thought to carry the abnormal signals. HOME CARE INSTRUCTIONS Take medicines only as directed by your health care provider. Some medicines can make atrial fibrillation worse or recur. If blood thinners were prescribed by your health care provider, take them exactly as directed. Too much blood-thinning medicine can cause bleeding. If you take too little, you will not have the n eeded protection against stroke and other problems. Perform blood tests at home if directed by your health care provider. Perform blood tests exactly as directed. Quit smoking if you smoke. Do not drink alcohol. Do not drink caffeinated beverages such as coffee, soda, and some teas. You may drink decaffeinated coffee, soda, or tea. Maintain a healthy weight.Do not use diet pills unless your health care provider approves. They may make heart problems worse. Follow diet instructions as directed by your health care provider. Exercise regularly as directed by your health care provider. Keep all follow-up visits as directed by your health care provider. This is important. PREVENTION The following substances can cause atrial fibrillation to recur: Caffeinated beverages. Alcohol. Certain medicines, especially those used for breathing problems. Certain herbs and herbal medicines, such as those containing ephedra or ginseng. Illegal drugs, such as cocaine and amphetamines. Sometimes medicines are given to prevent atrial fibrillation from recurring. Proper treatment of any underlying condition is also important in helping prevent recurrence. SEEK MEDICAL CARE IF: You notice a change in the rate, rhythm, or strength of your heartbeat. You suddenly begin urinating more frequently. You tire more easily when exerting yourself or exercising. SEEK IMMEDIATE MEDICAL CARE IF: You have chest pain, abdominal pain, sweating, or weakness. You feel nauseous. You have shortness of breath. You suddenly have swollen feet and ankles. You feel dizzy. Your face or limbs feel numb or weak. You have a change in your vision or speech. MAKE SURE YOU: Understand these instructions. Will watch your condition. Will get help right away if you are not doing well or get worse. This information is not intended to replace advice given to you by your health care provider. Make sure you discuss any questions you have with your health care provider. Document Released: 01/27/2006 Document Revised: 02/17/2015 Document Reviewed: 03/09/2013 [facility] Patient Information 2016 [facility]. Family Medicine Gastroesophageal Reflux Disease, Adult Gastroesophageal reflux disease (GERD) happens when acid from your stomach flows up into the esophagus. When acid comes in contact with the esophagus, the acid causes soreness (inflammation) in the esop hagus. Over time, GERD may create small holes (ulcers) in the lining of the esophagus. CAUSES Increased body weight. This puts pressure on the stomach, making acid rise from the stomach into the esophagus. Smoking. This increases acid production in the stomach. Drinking alcohol. This causes decreased pressure in the lower esophageal sphincter (valve or ring of muscle between the esophagus and stomach) , allowing acid from the stomach into the esophagus. Late evening meals and a full stomach. This increases pressure and acid production in the stomach. A malformed lower esophageal sphincter. Sometimes, no cause is found. SYMPTOMS Burning pain in the lower part of the mid-chest behind the breastbone and in the mid-stomach area. This may occur twice a week or more often. Trouble swallowing. Sore throat. Dry cough. Asthma-like symptoms including chest tightness, shortness of breath, or wheezing. DIAGNOSIS Your caregiver may be able to diagnose GERD based on your symptoms. In some cases, X-rays and other tests may be done to check for complications or to check the condition of your stomach and esophagus. TREATMENT Your caregiver may recommend [id number] or prescription medicines to help decrease acid production. Ask your caregiver before starting or adding any new medicines. HOME CARE INSTRUCTIONS Change the factors that you can control. Ask your caregiver for guidance concerning weight loss, quitting smoking, and alcohol consumption. Avoid foods and drinks that make your symptoms worse, such as: Caffeine or alcoholic drinks. Chocolate. Peppermint or mint flavorings. Garlic and onions. Spicy foods. [place] fruits, such as oranges, jacquie, or limes. Tomato-based foods such as sauce, chili, salsa, and pizza. Fried and fatty foods. Avoid lying down for the 3 hours prior to your bedtime or prior to taking a nap. Eat small, frequent meals instead of large meals. Wear loose-fitting clothing. Do not wear anything tight around your waist that causes pressure on your stomach. Raise the head of your bed 6 to 8 inches with wood blocks to help you sleep. Extra pillows will not help. Only take wnyr-hxe-[id number] or prescription medicines for pain, discomfort, or fever as directed by your caregiver. Do not take aspirin, ibuprofen, or other nonsteroidal anti-inflammatory drugs (NSAIDs). SEEK IMMEDIATE MEDICAL CARE IF: You have pain in your arms, neck, jaw, teeth, or back. Your pain increases or changes in intensity or duration. You develop nausea, vomiting, or sweating (diaphoresis). You develop shortness of breath, or you faint. Your vomit is green, yellow, black, or looks like coffee grounds or blood. Your stool is red, bloody, or black. These symptoms could be signs of other problems, such as heart disease, gastric bleeding, or esophageal bleeding. MAKE SURE YOU: Understand these instructions. Will watch your condition. Will get help right away if you are not doing well or get worse. This information is not intended to replace advice given to you by your health care provider. Make sure you discuss any questions you have with your health care provider. Document Released: 11/06/2005 Document Revised: 02/17/2015 Document Reviewed: 08/16/2011 [facility] Patient Information 2016 [employer]. Hypertension Hypertension, commonly called high blood pressure, is when the force of blood pumping through your arteries is too strong. Your arteries are the blood vessels that carry blood from your heart throughout your body. A blood pressure reading consists of a higher number over a lower number, such as 110/72. The higher number (systolic) is the pressure inside your arteries when your heart pumps. The lower n umber (diastolic) is the pressure inside your arteries when your heart relaxes. Ideally you want your blood pressure below 120/80. Hypertension forces your heart to work harder to pump blood. Your arteries may become narrow or stiff. Having hypertension puts you at risk for heart disease, stroke, and other problems. RISK FACTORS Some risk factors for high blood pressure are controllable. Others are not. Risk factors you cannot control include: Race. You may be at higher risk if you are . Age. Risk increases with age. Gender. Men are at higher risk than women before age 45 years. After age 65, women are at higher risk than men. Risk factors you can control include: Not getting enough exercise or physical activity. Being overweight. Getting too much fat, sugar, calories, or salt in your diet. Drinking too much alcohol. SIGNS AND SYMPTOMS Hypertension does not usually cause signs or symptoms. Extremely high blood pressure (hypertensive crisis) may cause headache, anxiety, shortness of breath , and nosebleed. DIAGNOSIS To check if you have hypertension, your health care provider will measure your blood pressure while you are seated, with your arm held at the level of your heart. It should be measured at least twice us ing the same arm. Certain conditions can cause a difference in blood pressure between your right and left arms. A blood pressure reading that is higher than normal on one occasion does not mean that you need treatment. If it is not clear whether you have high blood pressure, you may be asked to return on a different day to have your blood pressure checked again. Or, you may be asked to monitor your blood pressure at home for 1 or more weeks. TREATMENT Treating high blood pressure includes making lifestyle changes and possibly taking medicine. Living a healthy lifestyle can help lower high blood pressure. You may need to change some of your habits. Lifestyle changes may include: Following the DASH diet. This diet is high in fruits, vegetables, and whole grains. It is low in salt, red meat, and added sugars. Keep your sodium intake below 2,300 mg per day. Getting at least 3045 minutes of aerobic exercise at least 4 times per week. Losing weight if necessary. Not smoking. Limiting alcoholic beverages. Learning ways to reduce stress. Your health care provider may prescribe medicine if lifestyle changes are not enough to get your blood pressure under control, and if one of the following is true: Your systolic blood pressure is above 150. Your diastolic blood pressure is above 90. You have diabetes, and your systolic blood pressure is over 140 or your diastolic blood pressure is over 85. You have heart disease or have had a stroke or heart attack, and your blood pressure is above 130 over 80, which is written as 130/80. HOME CARE INSTRUCTIONS Have your blood pressure rechecked as directed by your health care provider. Take medicines only as directed by your health care provider. Follow the directions carefully. Blood pressure medicines must be taken as prescribed. The medicine does not work as well when you sk ip doses. Skipping doses also puts you at risk for problems. Do not smoke. Monitor your blood pressure at home as directed by your health care provider. SEEK MEDICAL CARE IF: You think you are having a reaction to medicines taken. You have recurrent headaches or feel dizzy. You have swelling in your ankles. You have trouble with your vision. SEEK IMMEDIATE MEDICAL CARE IF: You develop a severe headache or confusion. You have unusual weakness, numbness, or feel faint. You have severe chest or abdominal pain. You vomit repeatedly. You have trouble breathing. MAKE SURE YOU: Understand these instructions. Will watch your condition. Will get help right away if you are not doing well or get worse. This information is not intended to replace advice given to you by your health care provider. Make sure you discuss any questions you have with your health care provider. Document Released: 01/27/2006 Document Revised: 02/17/2015 Document Reviewed: 11/19/2013 [facility] Patient Information 2016 [place] [facility]. Pneumococcal Conjugate Vaccine (PCV13) What You Need to Know 1. Why get vaccinated? Vaccination can protect both children and adults from pneumococcal disease. Pneumococcal disease is caused by bacteria that can spread from person to person through close contact. It can cause ear infections, and it can also lead to more serious infections of the: Lungs (pneumonia), Blood (bacteremia), and Covering of the brain and spinal cord (meningitis). Pneumococcal pneumonia is most common among adults. Pneumococcal meningitis can cause deafness and brain damage, and it kills about 1 child in 10 who get it. Anyone can get pneumococcal disease, but children under 2 years of age and adults 65 years and older, people with certain medical conditions, and cigarette smokers are at the highest risk. Before there was a vaccine, the [place] saw: more than 700 cases of meningitis, about 13,000 blood infections, about 5 million ear infections, and about 200 deaths in children under 5 each year from pneumococcal disease. Since vaccine became available, severe pneumococcal disease in these children has fallen by 88%. About 18,000 older adults of pneumococcal disease each year in the [place]. Treatment of pneumococcal infections with penicillin and other drugs is not as effective as it used to be, because some strains of the disease have become resistant to these drugs. This makes prevention of the disease, through vaccination, even more important. 2. PCV13 vaccine Pneumococcal conjugate vaccine (called PCV13) protects against 13 types of pneumococcal bacteria. PCV13 is routinely given to children at 2, 4, 6, and 1215 months of age. It is also recommended for children and adults 2 to 64 years of age with certain health conditions, and for all adults 65 year s of age and older. Your doctor can give you details. 3. Some people should not get this vaccine Anyone who has ever had a life-threatening allergic reaction to a dose of this vaccine, to an earlier pneumococcal vaccine called PCV7, or to any vaccine containing diphtheria toxoid (for example, DTaP), should not get PCV13. Anyone with a severe allergy to any component of PCV13 should not get the vaccine. Tell your doctor if the person being vaccinated has any severe allergies. If the person scheduled for vaccination is not feeling well, your healthcare provider might decide to reschedule the shot on another day. 4. Risks of a vaccine reaction With any medicine, including vaccines, there is a chance of reactions. These are usually mild and go away on their own, but serious reactions are also possible. Problems reported following PCV13 varied by age and dose in the series. The most common problems reported among children were: About half became drowsy after the shot, had a temporary loss of appetite, or had redness or tenderness where the shot was given. About 1 out of 3 had swelling where the shot was given. About 1 out of 3 had a mild fever, and about 1 in 20 had a fever over 102.2F. Up to about 8 out of 10 became fussy or irritable. Adults have reported pain, redness, and swelling where the shot was given; also mild fever, fatigue, headache, chills, or muscle pain. Young children who get PCV13 along with inactivated flu vaccine at the same time may be at increased risk for seizures caused by fever. Ask your doctor for more information. Problems that could happen after any vaccine: People sometimes faint after a medical procedure, including vaccination. Sitting or lying down for about 15 minutes can help prevent fainting, and injuries caused by a fall. Tell your doctor if y ou feel dizzy, or have vision changes or ringing in the ears. Some older children and adults get severe pain in the shoulder and have difficulty moving the arm where a shot was given. This happens very rarely. Any medication can cause a severe allergic reaction. Such reactions from a vaccine are very rare, estimated at about 1 in a million doses, and would happen within a few minutes to a few hours after the vaccination. As with any medicine, there is a very small chance of a vaccine causing a serious injury or . The safety of vaccines is always being monitored. For more information, visit: www.cdc.gov/vaccinesafety/ 5. What if there is a serious reaction? What should I look for? Look for anything that concerns you, such as signs of a severe allergic reaction, very high fever, or unusual behavior. Signs of a severe allergic reaction can include hives, swelling of the face and throat, difficulty breathing, a fast heartbeat, dizziness, and weakness usually within a few minutes to a few hours after the vaccination. What should I do? If you think it is a severe allergic reaction or other emergency that can't wait, call or get the person to the nearest hospital. Otherwise, call your doctor. Reactions should be reported to the Vaccine Adverse Event Reporting System ( VAERS). Your doctor should file this report, or you can do it yourself through the VAERS web site at www.vaers.[facility].gov, or by calling . VAERS does not give medical advice. 6. The National Vaccine Injury Compensation Program The National Vaccine Injury Compensation Program (VICP) is a federal program that was created to compensate people who may have been injured by certain vaccines. Persons who believe they may have been injured by a vaccine can learn about the program and about filing a claim by calling or visiting the VICP website at www.[facility].gov/vaccinecompensatio n. There is a time limit to file a claim for compensation. 7. How can I learn more? Ask your healthcare provider. He or she can give you the vaccine package insert or suggest other sources of information. Call your local or state health department. Contact the Centers for Disease Control and Prevention (CDC): Call (3-740-KUU-INFO) or Visit CDC's website at www.cdc.gov/vaccines Vaccine Information Statement PCV13 Vaccine (12/15/2014) This information is not intended to replace advice given to you by your health care provider. Make sure you discuss any questions you have with your health care provider. Document Released: 11/24/2006 Document Revised: 02/17/2015 Document Reviewed: 12/22/2014 [employer] Patient Information 2016 [employer]. No follow up information was provided. Extracted from: Title: Office Visit Note- Med ck Author: Tea Herr PA-C Date: 09/05 Assessment/Plan Afib Follows with cardiology. Appears to be stable at this time. Gets Xarelto filled by cardiology, but BP meds through us. Refills for Coreg and Losartan sent to pharmacy. Recheck in 6 months. Ordered: Periodic Comp Preventive Med 65+ years Est [address] Benign essential hypertension Lab was done in April byDr. Blair. Meds were refilled as above. Recheck in 6 months. BP stable today. Ordered: Periodic Comp Preventive Med 65+ years [place] [id number] Breast cancer In remission. Follows with Dr. Blair yearly. Ordered: Periodic Comp Preventive Med 65+ years Est [address] Encounter for immunization, Need for vaccination with 13-polyvalent pneumococcal conjugate vaccine Ptwas given Prevnar 13 today. Will need Pneumovax 23 in 1 year.We also discussedZostavax, but she declined at this time. Tetanus is up to date. Encouraged flu shot in fall. Ordered: Periodic Comp Preventive Med 65+ years Est 99471 GERD without esophagitis May continue on Prilosec. Stable at this time. Ordered: Periodic Comp Preventive Med 65+ years Est [id number] Orders: carvedilol, 12.5 mg 1 tabs, Oral, BID, # 180 tabs, 1 Refill(s), Pharmacy: [facility], 1 tabs Oral BID losartan, 50 mg 1 tabs, Oral, BID, # 180 tabs, 1 Refill(s), Pharmacy: [facility], 1 tabs Oral BID
--- OUTSIDE RECORDS SUMMARY | 2017-02-06 14:19 | External Medical Summary | Referral Summary ---
:1935 Author Organization [facility] Address [address] [place] [address] [place] [address] Care Team Providers Name Role Phone Joby Beyer Primary Care Physician Encounter VC Date(s): 12/28/14 - 12/28/14 [facility] [address] [place] [phone] [place] Discharge Disposition: 01-Home or Self Care Attending Physician: Joby Beyer MD Admitting Physician: Joby Beyer MD Vital Signs Most recent to oldest [Reference Range]: 1 Blood Pressure [90-140/60-90 mmHg] 140/70 mmHg (12/28/14 10:09 AM) Problem List Condition Effective Dates Status [...] BID, # 180 tabs, 1 Refill(s), Pharmacy: [id number], 1 tabs Oral BID Start Date: 09/27/13 Status: OrderedCentrum 1 tabs, Oral, Daily, 0 Refill(s) Start Date: 09/24/13 Status: OrderedCipro 500 mg oral tablet 500 mg 1 tabs, Oral, q12hr, X 10 days, # 20 tabs, 0 Refill(s), Pharmacy: [id number], 1 tabs Oral q12hr,x10 days Start Date: 12/28/14 Stop Date: 01/07/15 Status: OrderedCozaar 50 mg oral tablet 50 mg 1 tabs, Oral, BID, # 180 tabs, 1 Refill(s), Pharmacy: [facility], 1 tabs Oral [...] [Reference Range]: 1 Sodium Lvl [135-144 mEq/L] 140 mEq/L (12/28/14 10:43 AM) Potassium Lvl [3.5-5.2 mEq/L] 4.6 mEq/L (12/28/14 10:43 AM) Chloride [99-111 mEq/L] 108 mEq/L (12/28/14 10:43 AM) CO2 [22-31 mEq/L] 22 mEq/L (12/28/14 10:43 AM) AGAP [3-20] 10 (12/28/14 10:43 AM) BUN [10-20 mg/dL] 24 mg/dL *HI* (12/28/14 10:43 AM) Glucose Lvl [70-99 mg/dL] 102 mg/dL *HI* (12/28/14 10:43 AM) Creatinine Lvl [0.57-1.11 mg/dL] 1.59 mg/dL *HI* (12/28/14 10:43 AM) eGFR [>60 mL/min] 31 mL/min 1 *ABN* (12/28/14 10:43 AM) Calcium Lvl [8.9-10.5 mg/dL] 8.9 mg/dL (12/28/14 10:43 AM) Albumin Lvl [3.4-4.8 gm/dL] 4.0 gm/dL (12/28/14 10:43 AM) Total Protein [6.2-8.1 gm/dL] 6.9 gm/dL (12/28/14 10:43 AM) Globulin [1.8-4.0 gm/dL] 2.9 gm/dL (12/28/14 10:43 AM) ALT [0-55 U/L] 26 U/L (12/28/14 10:43 AM) AST [5-34 U/L] 28 U/L (12/28/14 10:43 AM) Alk Phos [40-150 U/L] 121 U/L (12/28/14 10:43 AM) Bili Total [0.2-1.2 mg/dL] 0.8 mg/dL (12/28/14 10:43 AM) Lipase Lvl [8-78 U/L] 19 U/L (12/28/14 10:43 AM) Amylase Lvl [20-160 U/L] 43 U/L (12/28/14 10:43 AM) 1Result Comment: Multiply eGFR results by 1.21 for race.Urinalysis Most recent to oldest [Reference Range]: 1 UA Color DkYellow (12/28/14 10:48 AM) UA Appear Turbid *ABN* (12/28/14 10:48 AM) UA pH [5.0-8.0] 5.5 (12/28/14 10:48 AM) UA Leuk Est [Negative] Pos 1+ *ABN* (12/28/14 10:48 AM) UA Nitrite [Negative] Negative (12/28/14 10:48 AM) UA Protein [Negative] Trace *ABN* (12/28/14 10:48 AM) UA Glucose [Negative] Negative (12/28/14 10:48 AM) UA Ketones [Negative] Trace *ABN* (12/28/14 10:48 AM) UA Urobilinogen [<1.0 mg/dL] 1.0 mg/dL (12/28/14 10:48 AM) UA Bili [Negative] Negative (12/28/14 10:48 AM) UA Blood [Negative] Trace *ABN* (12/28/14 10:48 AM) UA Spec Grav [1.003-1.030] 1.031 *HI* (12/28/14 10:48 AM) Type Voided (12/28/14 10:48 AM) UA WBC [0-4] 5-10 *ABN* (12/28/14 10:48 AM) UA RBC [0-4] 0-4 (12/28/14 10:48 AM) Epithelial Cells 2-5 (12/28/14 10:48 AM) Crystals Amorphous (12/28/14 10:48 AM) Immunizations Vaccine Date Refusal Reason tetanus/diphth/pertuss [...] Patient Education Author: Joby Beyer MD Date: 12/28 Emergency Medicine Abdominal Pain Many things can cause abdominal pain. Usually, abdominal pain is not caused by a disease and will improve without treatment. It can often be observed and treated at home. Your health care provider will do a physical exam and possibly order blood tests and X-rays to help determine the seriousness of your pain. However, in many cases, more time must pass before a clear cause of the pain can be found. Be fore that point, your health care provider may not know if you need more testing or further treatment. HOME CARE INSTRUCTIONS Monitor your abdominal pain for any changes. The following actions may help to alleviate any discomfort you are experiencing: Only take prqc-uty-bosalrb or prescription medicines as directed by your health care provider. Do not take laxatives unless directed to do so by your health care provider. Try a clear liquid diet (broth, tea, or water) as directed by your health care provider. Slowly move to a bland diet as tolerated. SEEK MEDICAL CARE IF: You have unexplained abdominal pain. You have abdominal pain associated with nausea or diarrhea. You have pain when you urinate or have a bowel movement. You experience abdominal pain that wakes you in the night. You have abdominal pain that is worsened or improved by eating food. You have abdominal pain that is worsened with eating fatty foods. You have a fever. SEEK IMMEDIATE MEDICAL CARE IF: Your pain does not go away within 2 hours. You keep throwing up (vomiting). Your pain is felt only in portions of the abdomen, such as the right side or the left lower portion of the abdomen. You pass bloody or black tarry stools. MAKE SURE YOU: Understand these instructions. Will watch your condition. Will get help right away if you are not doing well or get worse. Document Released: 11/06/2005 Document Revised: 02/01/2014 Document Reviewed: 10/06/2013 ExitCare Patient Information 2015 [employer]. This information is not intended to replace advice given to you by your health care provider. Make sure you discuss any questions you have with your health care provider. No follow up information was provided. Extracted from: Title: Office Visit Note Author: Joby Beyer MD Date: 12/28/14 Assessment/Plan Acute abdominal pain in right flank Lab, CT scan pending again. IMPRESSION: No abnormality is seen. [1] [place] 5 number 60 for pain, may cause sedation. Acute UTI Restart cipro 500mg po bid for ten days. Possibly to urology. 45 minutes were utilized in care and coordination for this patient. Greater then 50% of the time was used for counseling and/or coordination of the patients care. Total time in review of her last treatment, current conditions, and new interventions with coordination of last care was over 45 minutes. Adequate anticoagulation on anticoagulant therapy On xarelto. Benign essential hypertension This issue was [...] days and no later then six months. Sees CCK. CKD (chronic kidney disease) This issue was reviewed, appears stable, and current therapy continued except as mentioned. Appropriate lab was reviewed from the most recent appropriate entry and lab w as ordered if needed in the cpoe/nursing orders, and follow up recommended generally in 90 days and no later then six months. Recently normal but will be rechecked prior to CT. Elevated blood sugar This issue was reviewed, appears stable, and current therapy continued except as mentioned. Appropriate lab was reviewed from the most recent appropriate entry and lab was order ed if needed in the cpoe/nursing orders, and follow up recommended generally in 90 days and no later then six months. GERD without esophagitis This issue was reviewed, appears stable, and current therapy continued except as mentioned. Appropriate lab was reviewed from the most recent appropriate entry and lab was o rdered if needed in the cpoe/nursing orders, and follow up recommended generally in 90 days and no later then six months. Kidney stones See above. 2: Nonobstructing 4 mm right renal stone [2] Orders: ciprofloxacin, 500 mg 1 tabs, Oral, q12hr, X 10 days, # 20 tabs, 0 Refill(s), [facility], 1 tabs Oral q12hr,x10 days HYDROcodone-acetaminophen, 1 tabs, Oral, q6hr, as needed for pain, # 60 tabs , 0 Refill(s) Amylase Level Comprehensive Metabolic Panel CT Abdomen w/ + w/o Pelvis w/ + w/o Cont Lipase Level Urinalysis with Culture if Indicated
--- OUTSIDE RECORDS SUMMARY | 2017-02-06 14:19 | External Medical Summary | Referral Summary ---
:1935 Author Organization [facility] Address [address] [place] [address] [place] [phone] Care Team Providers Name Role Phone Joby Beyer Primary Care Physician Encounter VC Date(s): 01/17/15 - 01/17/15 [facility] [address] [place] [address] [place] [phone] [place] Discharge Diagnosis: Changing skin lesion Discharge Diagnosis: Actinic keratosis Discharge Disposition: 01-Home or Self Care Attending Physician: Carlos Goldstein MD Admitting Physician: Carlos Goldstein MD Referring Physician: Joby Beyer MD Vital Signs Most recent to oldest [Reference Range]: 1 Temperature Tympanic [36.6-38.1 degC] 36.6 degC (01/17/15 1:04 PM) Blood Pressure [90-140/60-90 mmHg] 130/88 mmHg (01/17/15 1:04 PM) Problem List Condition Effective Dates Status [...] BID, # 180 tabs, 1 Refill(s), Pharmacy: [id number], 1 tabs Oral BID Start Date: 09/27/13 Status: OrderedCentrum 1 tabs, Oral, Daily, 0 Refill(s) Start Date: 09/24/13 Status: OrderedCozaar 50 mg oral tablet 50 mg 1 tabs, Oral, BID, # 180 tabs, 1 Refill(s), Pharmacy: [facility], 1 tabs Oral [...] Procedures Procedure Date Related Diagnosis Body Site Destruction (eg, laser surgery, electrosurgery, 01/17/15 cryosurgery, chemosurgery, surgical curettement), premalignant lesions (eg, actinic keratoses); first lesion Miniscus Removal 2009 Repair 2009 Esophageal Mass Removal 01/2002 Cholecystectomy 1998 Hysterectomy 1998 Lumpectomy 02/1989 Appendectomy Chemotherapy Colonoscopy Mastectomy Tonsillectomy Social History Social History Type Response Smoking Status Former smoker Assessment and Plan Extracted from: Title: Ambulatory Patient Education Author: Carlos Goldstein MD Date: Family Medicine Actinic Keratosis Actinic keratosis is a precancerous growth on the skin. This means it could develop into skin cancer if it is not treated. About 1% of actinic keratoses turn into skin cancer within a year. It is import ant to have all such growths removed to prevent them from developing into skin cancer. CAUSES Actinic keratosis is caused by getting too much ultraviolet (UV) radiation from the sun or other UV light sources. RISK FACTORS Factors that increase your chances of getting actinic keratosis include: Having light-colored skin and blue eyes. Having blonde or red hair. Spending a lot of time in the sun. Age. The risk of actinic keratosis increases with age. SYMPTOMS Actinic keratosis growths look like scaly, rough spots of skin. They can be as small as a pinhead or as big as a quarter. They may itch, hurt, or feel sensitive. Sometimes there is a little tag of pink or mccauley skin growing off them. In some cases, actinic keratoses are easier felt than seen. They do not go away with the use of moisturizing lotions or creams. Actinic keratoses appear most often on area s of skin that get a lot of sun exposure. These areas include the: Scalp. Face. Ears. Lips. Upper back. Backs of the hands. Forearms. DIAGNOSIS Your health care provider can usually tell what is wrong by performing a physical exam. A tissue sample (biopsy) may also be taken and examined under a microscope. TREATMENT Actinic keratosis can be treated several ways. Most treatments can be done in your health care provider's office. Treatment options may include: Curettage. A tool is used to gently scrape off the growth. Cryosurgery. Liquid nitrogen is applied to the growth to freeze it. The growth eventually falls off the skin. Medicated creams, such as 5-fluorouracil or imiquimod. The medicine destroys the cells in the growth. Chemical peels. Chemicals are applied to the growth and the outer layers of skin are peeled off. Photodynamic therapy. A drug that makes your skin more sensitive to light is applied to the skin. A strong, blue light is aimed at the skin and destroys the growth. PREVENTION To prevent future sun damage: Try to avoid the sun between 10:00 a.m. and 4:00 p.m. when it is the strongest. Use a sunscreen or sunblock with SPF 30 or greater. Apply sunscreen at least 30 minutes before exposure to the sun. Always wear protective hats, clothing, and sunglasses with UV protection. Avoid medicines, herbs, and foods that increase your sensitivity to sunlight. Avoid tanning beds. HOME CARE INSTRUCTIONS If your skin was covered with a bandage, change and remove the bandage as directed by your health care provider. Keep the treated area dry as directed by your health care provider. Apply any creams as prescribed by your health care provider. Follow the directions carefully. Check your skin regularly for any changes. Visit a skin doctor (medical records administrator) every year for a skin exam. SEEK MEDICAL CARE IF: Your skin does not heal and becomes irritated, red, or bleeds. You notice any changes or new growths on your skin. Document Released: 04/25/2009 Document Revised: 06/13/2014 Document Reviewed: 03/09/2012 ExitCare Patient Information 2015 [employer] [facility]. This information is not intended to replace advice given to you by your health care provider. Make sure you discuss any questions you have with your health care provider. No follow up information was provided.
--- OUTSIDE RECORDS SUMMARY | 2017-02-06 14:19 | External Medical Summary | Referral Summary ---
:1935 [facility] Address [address] [place] [address] [place] [address] Care Team Providers Name Role Phone Joby Beyer Primary Care Physician Encounter VC Date(s): 01/26/15 - 01/26/15 [facility] [place] [phone] [place] Discharge Disposition: 01-Home or Self Care Attending Physician: Joby Beyer MD Admitting Physician: Joby Beyer MD Vital Signs Most recent to oldest [Reference Range]: 1 Blood Pressure [90-140/60-90 mmHg] 130/76 mmHg (01/26/15 8:28 AM) Problem List Condition Effective Dates Status [...] BID, # 180 tabs, 1 Refill(s), Pharmacy: [facility], 1 tabs Oral BID Start Date: 09/27/13 Status: OrderedCentrum 1 tabs, Oral, Daily, 0 Refill(s) Start Date: 09/24/13 Status: OrderedCozaar 50 mg oral tablet 50 mg 1 tabs, Oral, BID, # 180 tabs, 1 Refill(s), Pharmacy: [facility], 1 tabs [...] 1 Sodium Lvl [135-144 mEq/L] 141 mEq/L (01/26/15 9:00 AM) Potassium Lvl [3.5-5.2 mEq/L] 4.1 mEq/L (01/26/15 9:00 AM) Chloride [99-111 mEq/L] 109 mEq/L (01/26/15 9:00 AM) CO2 [22-31 mEq/L] 26 mEq/L (01/26/15 9:00 AM) AGAP [3-20] 6 (01/26/15 9:00 AM) BUN [10-20 mg/dL] 16 mg/dL (01/26/15 9:00 AM) Glucose Lvl [70-99 mg/dL] 98 mg/dL (01/26/15 9:00 AM) Creatinine Lvl [0.57-1.11 mg/dL] 0.80 mg/dL (01/26/15 9:00 AM) eGFR [>60 mL/min] >60 mL/min 1 (01/26/15 9:00 AM) Calcium Lvl [8.9-10.5 mg/dL] 9.2 mg/dL (01/26/15 9:00 AM) Albumin Lvl [3.4-4.8 gm/dL] 4.0 gm/dL (01/26/15 9:00 AM) Total Protein [6.2-8.1 gm/dL] 6.6 gm/dL (01/26/15 9:00 AM) Globulin [1.8-4.0 gm/dL] 2.6 gm/dL (01/26/15 9:00 AM) ALT [0-55 U/L] 16 U/L (01/26/15 9:00 AM) AST [5-34 U/L] 21 U/L (01/26/15 9:00 AM) Alk Phos [40-150 U/L] 82 U/L (01/26/15 9:00 AM) Bili Total [0.2-1.2 mg/dL] 0.6 mg/dL (01/26/15 9:00 AM) 1Result Comment: Multiply eGFR results by 1.21 for race.Urinalysis Most recent to oldest [Reference Range]: 1 UA Color Yellow (01/26/15 9:06 AM) UA Appear Clear (01/26/15 9:06 AM) UA pH [5.0-8.0] 5.0 (01/26/15 9:06 AM) UA Leuk Est [Negative] Negative (01/26/15 9:06 AM) UA Nitrite [Negative] Negative (01/26/15 9:06 AM) UA Protein [Negative] Negative (01/26/15 9:06 AM) UA Glucose [Negative] Negative (01/26/15 9:06 AM) UA Ketones [Negative] Negative (01/26/15 9:06 AM) UA Urobilinogen [<1.0 mg/dL] 0.2 mg/dL (01/26/15 9:06 AM) UA Bili [Negative] Negative (01/26/15 9:06 AM) UA Blood [Negative] Negative (01/26/15 9:06 AM) UA Spec Grav [1.003-1.030] 1.024 (01/26/15 9:06 AM) Type Voided (01/26/15 9:06 AM) Immunizations Vaccine Date Refusal Reason tetanus/diphth/pertuss (Tdap) adult/adol 10/11/14 influenza virus vaccine, inactivated 11/17/14 influenza virus vaccine, inactivated 11/17/14 influenza virus vaccine, inactivated 11/15/13 influenza virus vaccine, live 11/11/12 influenza virus vaccine, live 10/23/11 pneumococcal 23-polyvalent vaccine 07/17/01 tetanus-diphth toxoids (Td) adult/adol 07/09/01 Procedures Procedure Date Related Diagnosis Body Site Miniscus Removal 2008 Repair 2008 Esophageal Mass Removal 01/2002 Cholecystectomy 1997 Hysterectomy 1997 Lumpectomy 02/1989 Appendectomy Chemotherapy Colonoscopy Mastectomy Tonsillectomy Social History Social History Type Response Smoking Status Former smoker Assessment and Plan Extracted from: Title: Ambulatory Patient Education Author: Joby Beyer MD Date: 01/26 Family Medicine Breast Biopsy A breast biopsy [...] medicine. Medicines taken, including vitamins, herbs, eyedrops, kpkh-vuy-myqdeve medicines, and creams. Use of steroids (by [...] 01/27/2006 Document Revised: 05/24/2013 Document Reviewed: 02/27/2012 ExitCare Patient Information 2015 [employer]. This information is not intended to replace advice given to you by your health care provider. Make sure you discuss any questions you have with your health care provider. No follow up information was provided. Extracted from: Title: Office Visit Note Author: Joby Beyer MD Date: 01/26/15 Assessment/Plan Breast cancer The patient's issue is nearly or completely resolved. There is no further issues or testing desired by them at this time. CKD (chronic kidney disease) This issue was reviewed, appears stable, and current therapy continued except as mentioned. Appropriate lab was reviewed from the most recent appropriate entry and lab w as ordered if needed in the cpoe/nursing orders, and follow up recommended generally in 90 days and no later then six months. Labstable and lab pending. Elevated blood sugar This issue was reviewed, appears stable, and current therapy continued except as mentioned. Appropriate lab was reviewed from the most recent appropriate entry and lab was order ed if needed in the cpoe/nursing orders, and follow up recommended generally in 90 days and no later then six months. Lab stable. GERD without esophagitis This issue was reviewed, appears stable, and current therapy continued except as mentioned. Appropriate lab was reviewed from the most recent appropriate entry and lab was o rdered if needed in the cpoe/nursing orders, and follow up recommended generally in 90 days and no later then six months. Kidney stones The patient's issue is nearly or completely resolved. There is no further issues or testing desired by them at this time. KUB and lab pending. Impression: 1: 4 mm rounded calcification within the right side of the pelvis likely corresponds to some calcified phleboliths seen on the recent CT. It however is difficult to absolutely exclude residual distal ureteric stone on the basis of this single KUB. Followup KUB or unenhanced CT would better differentiate these possibilities [1] IMPRESSION: 1. [place]buu-[place]-vycaup right hydronephrosis and right hydroureter. This right [...] with additional nonemergent findings as described above. 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 Likely it will be redone anyway with her breast cancer monitoring. She has had large radiation exposures from cancer treatment and repeat CT scan for [place] monitoring seems unnecessary at this time. KUB and lab seem sufficient to the patient at this time.
--- OUTSIDE RECORDS SUMMARY | 2017-02-06 14:19 | External Medical Summary | Continuity of Care Document ---
:1935 Author Organization [facility] Allergies There is no data. Medications There is no data. Problems There is no data. Procedures There is no data. Results Test Result Range CHEM/HEM PROFILE-BEDSIDE - 04/17/12 11:19 POTASSIUM 4.2 mmol/L 3.5-5.3 METHOD Bedside ANION GAP 13 mmol/L 10-20 METHOD Bedside GLUCOSE 107 mg/dL 70-99 BLOOD UREA NITROGEN 25 mg/dL 7-20 CREATININE 0.8 mg/dL 0.6-1.0 HEMOGLOBIN 12.9 gm/dL 12.0-16.0 HEMATOCRIT 38.0 % 37.0-47.0 SODIUM 143 mmol/L 135-148 CHLORIDE 110 mmol/L 98-110 CARBON DIOXIDE 25 mmol/L 21-32 CALCIUM IONIZED 4.8 mg/dL 4.5-5.3 CBC W/DIFF - 04/17/12 11:20 EOSINOPHIL # 0.1 k/cumm 0.1-0.5 EOSINOPHIL % 2 % 2-4 GRANULOCYTE # 3.5 k/cumm 2.0-9.0 GRANULOCYTE % 66 % 50-75 LYMPHOCYTE # 1.1 k/cumm 1.0-4.0 LYMPHOCYTE % 21 % 20-30 MEAN CELL HGB 32.3 pg 27.0-33.0 MEAN CELL HGB CONCENTRATION 33.3 g/dL 32.0-37.0 MEAN CELL VOLUME 97.0 fl 80.0-100.0 MONOCYTE # 0.6 k/cumm 0.1-1.0 MONOCYTE % 11 % 4-6 RED BLOOD CELL 4.05 m/cumm 4.00-6.00 RED CELL DISTRIBUTION WIDTH 14.4 % 11.0-15.6 WHITE BLOOD CELL 5.3 k/cumm 5.0-10.0 HEMOGLOBIN 13.1 gm/dL 12.0-16.0 HEMATOCRIT 39.3 % 37.0-47.0 PLATELET COUNT 184 k/cumm 150-400 PROTHROMBIN TIME WITH INR - 04/17/12 11:20 INTERNATIONAL NORMAL RATIO 2.3 0.9-1.1 PROTHROMBIN TIME 24.4 sec 9.3-12.2 TROPONIN I BEDSIDE - 04/17/12 12:26 METHOD Bedside TROPONIN I < 0.04 ng/mL < 0.11 URINALYSIS WITH MICROSCOPIC - 04/17/12 12:48 UA LEUKOCYTE ESTERASE DIPSTICK NEGATIVE NEGATIVE UA NITRITE DIPSTICK NEGATIVE NEGATIVE UA PROTEIN DIPSTICK NEGATIVE NEGATIVE UA GLUCOSE DIPSTICK NEGATIVE NEGATIVE UA KETONE DIPSTICK NEGATIVE NEGATIVE UA UROBILINOGEN DIPSTICK NORMAL NORMAL UA BILIRUBIN DIPSTICK NEGATIVE NEGATIVE UA BLOOD DIPSTICK NEGATIVE NEGATIVE UA EPITHELIAL CELLS 2+ epi/hpf 0 - 1+ UA MUCUS 4+ NEG TO 1+ UA RBC 0 rbc/hpf 0 - 3 UA VOLUME FOR EXAM 12.0 mL (12mL STD) UA WBC 2-5 wbc/hpf 0 - 5 UA SPECIFIC GRAVITY 1.026 1.015-1.025 UR PH 5.0 5.0-7.0 Encounters ACCT No. Visit Discharge Status Pt. Type Provider Facility Loc./Unit Complaint Date/Time [id number] 04/17/2012 04/17/2012 DIS Emergency Cassia SERRANO, [facility] [id number] 10:49:00 14:20:00 [facility] [id number] 02/11/2013 02/11/2013 CLS Outpatient 10:48:00 23:59:59 [id number] 12/03/2012 12/03/2012 CLS Outpatient 09:27:00 23:59:59
--- OUTSIDE RECORDS SUMMARY | 2017-02-06 14:19 | External Medical Summary | Referral Summary ---
:1935 Author Organization [facility] Address [address] [place] [address] [place] [id number] Care Team Providers Name Role Phone Joby Beyer Primary Care Physician Encounter VC Date(s): 11/17/14 - 11/17/14 [facility] [address] [place] [phone]- [place] Discharge Disposition: [...] Active Kidney disease(Confirmed) Active Kidney stones(Confirmed) Active Breast cancer(Confirmed) 1989 Active Breast cancer(Confirmed) 01/2002 Active Osteoarthritis(Confirmed) Active Overweight(Confirmed) Active Allergies, Adverse Reactions, Alerts Substance Reaction Severity Status metoclopramide Adverse Reaction-combative Active Medications acetaminophen 500 mg, Oral, q6hr, as needed for pain, 0 Refill(s) Start Date: 09/24/13 Status: Orderedcarvedilol 6.25 mg oral tablet 1 tabs, Oral, BID, # 180 tabs, 1 Refill(s), Pharmacy: [id number], 1 tabs Oral BID Start Date: 09/27/13 Status: OrderedCentrum 1 tabs, Oral, Daily, 0 Refill(s) Start Date: 09/24/13 Status: OrderedCozaar 50 mg oral tablet 50 mg 1 tabs, Oral, BID, NEEDS APPT PRIOR TO ADDITIONAL REFILLS, # 180 tabs, 0 Refill(s), Pharmacy: [facility], 1 tabs Oral BID,Instr:NEEDS APPT PRIOR TO ADDITIONAL REFILLS Start Date: 10/27/14 Status: OrderedOsteo Bi-Flex 1 tabs, Oral, Daily, 0 Refill(s) Start Date: 09/24/13 Status: OrderedPriLOSEC OTC 20 mg, Oral, Daily, [...] medicine. Medicines taken, including vitamins, herbs, eyedrops, [id number] medicines, and creams. Use of steroids (by [...] 01/27/2006 Document Revised: 05/24/2013 Document Reviewed: 02/27/2012 [facility] Patient Information 2015 [employer]. This information is not intended to replace [...] Sutures removed. Routine wound care. Tdap at [facility] on11/05. Visit for suture removal See above. The patient was given the vaccines requested per protocol and according to those needed for school/family/college/ etc. Flu vaccine given.
[2017-02-06 14:27] VITALS: BMI 40.6
[2017-02-06] MEDS ORDERED: NS 1,000 ML IV SCH (16:00)
--- NOTE | 2017-02-06 16:38 | History & Physical Report ---
History of Present Illness Date: 02/06/17 Chief complaint: Black stools HPI: reports black tarry stools for the last 12 days or so. Pt has also been fatigued and has had exertional dyspnea. Pt denies any cp, n/v/d, f/c. Pt denies any previous such episodes. Pt last had a colonoscopy 10 years ago and reports they took out some polyps and recommended she come back in 10 years but she has not had one since. Pt denies any weight loss or night sweats. Pt denies any epigastric pain. Pt does have GERD and takes prilosec daily and has been taking that for a long time. Pt takes ibuprofen may be every couple of weeks when she really needs it for the arthritis but otherwise uses tylenol. Review of Systems All systems PM: 10-point ROS was reviewed, no additional remarkable complaints except Past Medical History Patient Stated Medical History Peripheral Neuropathy Yes: REPORTS IN FEET Cataracts Yes Macular Degeneration Yes: BOTH EYES Angina Yes: AFIB Hypertension Yes Gastroesophageal Reflux Yes Disease Hx Incontinence Yes: OCCASIONAL INCONTINENCE Hx Kidney Stones Yes Hx Urinary Tract Infection Yes Anemia Yes Shingles Yes Chemotherapy Yes: 2002 Clinic Medical History Arthritis (Acute Medical) Atrial fibrillation (Acute Medical) Breast cancer (Acute Medical) Degenerative disc disease (Acute Medical) Esophageal mass (Acute Medical) GERD (gastroesophageal reflux disease) (Acute Medical) Hypertension (Acute Medical) Kidney stones (Acute Medical) Surgical History: *Pacemaker implant 2013. *Right Breast Lumpectomy 1989. * Bilateral Mastectomy 01/2002. *Total Abdominal Hysterectomy with Bilateral Salpingo-Oophorectomy with incidental Appendectomy. *Laparsocopic Cholecystectomy. *Left Cataract Removal Family History: Family History (Last Reviewed 09/07/16 @ 11:08 by BALDO Dumont) Father Hodgkins disease Mother Hypertension Family History Updates: Reviewed - Social History Smoking status: Former smoker Medications Home Medications Medication Instructions Recorded Confirmed Type Multivitamins W-Minerals/Lut 1 tab PO DAILY #0 11/24/08 02/06/17 History (Centrum Silver Tablet) Omeprazole Magnesium [Prilosec Otc] 1 tab PO HS #0 11/24/08 02/06/17 History Carvedilol 1 tab PO BID #0 11/05/14 02/06/17 History Rivaroxaban [Xarelto] 1 tab PO DAILY #0 11/05/14 02/06/17 History Acetaminophen [Acetaminophen 8 2 tab PO Q8H PRN #0 tab 12/29/14 02/06/17 History Hour] Vit A/Vit C/Vit E/Zinc/Copper 1 each PO BID 02/06/17 02/06/17 History [Preservision Areds Softgel] Allergies Allergy/AdvReac Type Severity Reaction Status Date / Time metoclopramide AdvReac Intermediate NERVOUS, Verified 02/06/17 14:34 SQUIRRELY Exam Vital Signs: Temperature 97.2 F 02/06/17 14:50 Pulse Rate 81 02/06/17 15:43 Respiratory Rate 18 02/06/17 14:50 Blood Pressure 160/90 H 02/06/17 15:43 Pulse Oximetry 98 02/06/17 15:43 Height/Weight/BMI: Height 5 ft 4 in Weight 107.4 kg Body Mass Index 40.6 - Constitutional Present: no acute distress - Routine HEENT Exam Head: Present: normocephalic, atraumatic Eye: Present: EOMI, PERRL ENT: Present: mucous membranes moist - Routine Respiratory Exam Present: CTA bilaterally. Absent: wheezes, crackles - Routine Cardiovascular Exam Present: RRR, no murmur - Routine Abdominal Exam Present: soft, non distended, non tender - Routine Extremities Exam Present: no edema. Absent: cyanosis, clubbing - Routine Skin Exam Present: intact, dry. Absent: erythema - Routine Neurological Exam Present: alert, oriented X3 Assessment and Plan Assessment and Plan: GI Bleed -Likely upper with melena but lower possible as well -Vitals stable, Orthostatics wnls -IV fluids, BID PPI, FOBT, HH q8h, consulted -Hgb at office reported as 7.9 and per physician was normal at last regular check 6 months to 1 yr ago -Transfuse for Hgb <7 Afib -Cont. carvedilol -Hold xarelto Anemia 2/2 bleed -Hgb 7.9 as reported per outside, don't have any in house labs yet -order cbc and check iron panel Ppx -SCDs - Physician Narrative Narrative: Date: 02/06/17 Time: 1632 Hospital Course Summary Disclaimer: The visit summary below is not to be considered part of the above Progress Note. Hospital Course: 02/06/17 17:11 Pt comes in from office for GI bleed. Will treat with PPI and consult surgery for EGD/Colonoscopy. Pt stable,vitals stable. Pt even reports her BMs have gone back to normal now. Pt okay to have on floor.
[2017-02-06] MEDS: --POM--CARVEDILOL 12.5 MG TABLET PO SCH (17:55)
[2017-02-06] MEDS: --POM--LOSARTAN 50 MG TABLET PO SCH (21:17)
[2017-02-06] MEDS: PANTOPRAZOLE 40 MG INJECTION IVP SCH (21:17)
[2017-02-07] MEDS: PANTOPRAZOLE 40 MG INJECTION IVP SCH ×2 (08:48→20:01)
[2017-02-07] MEDS: --POM--CARVEDILOL 12.5 MG TABLET PO SCH ×2 (08:49→17:00)
[2017-02-07] MEDS: --POM--LOSARTAN 50 MG TABLET PO SCH ×2 (08:49→20:02)
--- NOTE | 2017-02-07 08:57 | Progress Note ---
- Date 02/07/17 Subjective: Alaina is feeling about the same. She feels lightheaded and unsteady on her feet, and relies on her cane 100% of the time (typically she only uses it when she goes out - now she wants it even taking a few steps in her room). She also has some shortness of breath, which is unusual for her. She denies abdominal pain/ cramping but feels bloated. She denies nausea/vomiting. She has not been sweating or clammy but is chilled (typically she's "warm-blooded"). Objective Vital signs: Temperature 97.8 F 02/07/17 07:49 Pulse Rate 91 02/07/17 07:49 Respiratory Rate 18 02/07/17 07:49 Blood Pressure 130/77 02/07/17 07:49 Pulse Oximetry 96 02/07/17 07:49 Height/Weight/BMI: Height 1.63 m Weight 106 kg Body Mass Index 40.6 - Constitutional Present: no acute distress, well nourished, well developed - Routine HEENT Exam Head: Present: normocephalic Eye: Present: PERRL ENT: Present: oropharynx clear - Routine Respiratory Exam Present: CTA bilaterally - Routine Cardiovascular Exam Present: RRR, S1, S2 - Routine Abdominal Exam Present: normoactive bowel sounds, non tender, distended (mild) - Routine Extremities Exam Present: no edema, pulses intact - Routine Musculoskeletal Exam Musculoskeletal: Present: no joint swelling - Routine Skin Exam Present: intact, dry, pallor, warm - Routine Neurological Exam Present: alert, oriented X3, normal speech - Routine Psychiatric Exam Present: normal affect, normal thought process, cooperative Results - Labs CBC & Chem 7: 02/07/17 11:23 02/06/17 17:10 Assessment and Plan (1) GI bleed Current visit: Yes Status: Acute Assessment and Plan: Assessment & Plan GI Bleed -stool for occult blood neg on 02/06/17 -no melena since admission -hgb down slightly to 7.4 - recheck later today -Dr. Pereira consult pending -discussed transfusion - pt would not want blood transfusion unless absolutely necessary -iron level was low at 25, with 8% sat - start ferrous sulfate -cont PPI Afib; HTN -Cont. carvedilol, cozaar -Hold xarelto DVT Prophylaxis: SCD's GI Prophylaxis: Protonix - Physician Narrative Physician: Amanda Stahl MD Narrative: Date: 02/07/17 Time: 1620 I have independently evaluated and examined this patient. I reviewed the chart, the patient's history, and the KEY ACCOUNT COORDINATOR/PA's documented findings as above. We discussed and formulated the assessment and plan as above with additions as below: Mrs. El reports that her legs feel "mushy" and that she had a bowel movement earlier today which was not black and did not appear to have any blood in it. Hemoccult yesterday was negative. She describes feeling unsteady when she is in mild exertional dyspnea as previously described. Patient is alert and comfortable at rest; respirations are nonlabored and breath sounds clear Abdomen is soft and nontender, bowel sounds present Hemoglobin 7.6-7.4-7.9; last hemoglobin at [facility] was 11.7 in December 2014 at which time MCV was 90 per review of old records. Serum iron 25, TIBC 304, iron saturation 8% In addition to above problems please add: #1 macrocytic anemia #[address] Pereira-anticipate EGD/colonoscopy in a.m. after off Xarelto 48 hours. Check B-12 in a.m. Discussed with nursing/case management. Hospital Course Summary Disclaimer: The visit summary below is not to be considered part of the above Progress Note. Hospital Course: 02/06/17 17:11 Pt comes in from office for GI bleed. Will treat with PPI and consult surgery for EGD/Colonoscopy. Pt stable,vitals stable. Pt even reports her BMs have gone back to normal now. Pt okay to have on floor. 02/07/17 16:36 Hemoglobin stable overnight, Hemoccult negative. Macrocytic anemia with iron deficient indices-iron sulfate to be initiated. Remains symptomatic with exertional dyspnea and generalized weakness. Remains on liquid diet in anticipation of EGD/colonoscopy in 1-[address] Pereira.
[2017-02-07] MEDS ORDERED: Bisacodyl EC TAB 5 MG TABLET PO ONE (16:37)
[2017-02-07] MEDS ORDERED: POLYETHYL. GLYCOL 3350 BOTTLE 238 GM PO ONE (18:00)
[2017-02-08] MEDS: --POM--LOSARTAN 50 MG TABLET PO SCH (10:26)
[2017-02-08] MEDS: PANTOPRAZOLE 40 MG INJECTION IVP SCH (10:26)
[2017-02-08] MEDS: --POM--CARVEDILOL 12.5 MG TABLET PO SCH (10:27)
--- NOTE | 2017-02-08 10:38 | Anesthesia Preoperative Report ---
Anesthesia Preoperative Record - Date and Time Date: 02/08/17 Preoperative Diagnosis: Anemia Proposed Procedure: EGD/Colonoscopy NPO Since Date: 02/08/17 NPO Since Time: 00:00 Allergies/Adverse Reactions: Allergies Allergy/AdvReac Type Severity Reaction Status Date / Time metoclopramide AdvReac Intermediate NERVOUS, Verified 02/06/17 14:34 SQUIRRELY - Vital Signs Vital Signs: Temperature 98.5 F 02/08/17 08:02 Pulse Rate 73 02/08/17 08:02 Respiratory Rate 16 02/08/17 08:02 Blood Pressure 121/68 02/08/17 08:02 Pulse Oximetry 97 02/08/17 08:02 Height and Weight: Height 5 ft 4 in Weight 105.4 kg Body Mass Index 40.6 - Medications Inpatient Medications: Current Medications [facility] Last Admin: 02/08/17 10:27 Dose: 12.5 mg Ferrous Sulfate (Feosol) 324 mg PO WB [facility] Losartan Potassium (Cozaar) 50 mg PO BID [facility] Last Admin: 02/08/17 10:26 Dose: 50 mg Pantoprazole Sodium (Protonix Iv) 40 mg IVP BID [facility] Last Admin: 02/08/17 10:26 Dose: 40 mg Home Medications: Home Medications Medication Instructions Recorded Confirmed Type Multivitamins W-Minerals/Lut 1 tab PO DAILY #0 11/24/08 02/06/17 History (Centrum Silver Tablet) Omeprazole Magnesium [Prilosec Otc] 1 tab PO HS #0 11/24/08 02/06/17 History Carvedilol 1 tab PO BID #0 11/05/14 02/06/17 History Rivaroxaban [Xarelto] 1 tab PO DAILY #0 11/05/14 02/06/17 History Acetaminophen [Acetaminophen 8 2 tab PO Q8H PRN #0 tab 12/29/14 02/06/17 History Hour] Losartan Potassium [Cozaar] 50 mg PO BID 02/06/17 02/06/17 History Vit A/Vit C/Vit E/Zinc/Copper 1 each PO BID 02/06/17 02/06/17 History [Preservision Areds Softgel] Is Patient on Beta Shailesh?: Yes Beta Shailesh Last Dose Date/Time: 12/30/17 AM - Medical History Respiratory: Reports: Other (SOA with moderate exertion) Cardiovascular: Reports: Abnormal EKG (A-fib), Arrhythmia (A-Fib), Hypertension Gastrointestional: Reports: Gastroesophageal Reflux Disease (controlled with meds), Morbid Obesity, Other (Esophageal mass removed in past) Neuro/Musculoskeletal: Reports: Back Problems (DDD) Renal/Endocrine: DENIES: Diabetes Mellitus Type 1, Diabetes Mellitus Type 2, Renal Failure, Dialysis, Thyroid Disease, Weight Loss, Weight Gain, Other Other History: Reports: Chemotherapy (2001), Cancer (BILATERAL BREAST CANCER) - Surgical History HEENT Surgeries: Reports: Tonsillectomy, Other (CATARACT REMOVED FROM LEFT EYE) Cardiac Surgeries/Treatments: Reports: Pacemaker GI Surgery/Treatments: Reports: Appendectomy, Cholecystectomy, Other ( PRECANCEROUS MASS REMOVED ESOPHAGUS) Musculoskeletal Surgery/Tx: Reports: Joint Surgery (PLATE AND SCREWS LEFT ANKLE) , Other (MINUSCUS REPAIR LEFT KNEE) Reproductive Surgery/Treatment: Reports: Hysterectomy, Lumpectomy (1989 RIGHT BREAST), Mastectomy (DOUBLE MASTECTOMY 2001), Oophorectomy Anesthesia Reactions: None Hx Family Anesthesia Reaction: No History of Motion Sickness: No - Social History Smoking Status: Former smoker Second Hand Exposure: No Substance Use Type: does not use Alcohol Intake: current Alcohol Intake Frequency: holidays/special occasions only - Pertinent Findings Laboratory: CBC and BMP 02/08/17 04:35 02/08/17 04:35 BMP 02/08/17 04:35 Sodium 140 Potassium 3.4 L Chloride 108 H Carbon Dioxide 21 L BUN 11.0 Creatinine 0.8 Glucose 103 Calcium 8.5 EKG: Sinus Rhythm, A-fib Paced: intermittent - Physical Exam Respiratory Exam: Present: lungs clear, bilateral breath sounds equal Cardiovascular Exam: Present: regular rate and rhythm, no murmur - Airway Assessment Mallampati Score: II TMD: 2 Fingerbreadths Neck Extension: fair Overall Assessment: may be difficult intubation (small mouth opneing) - ASA ASA Score: 3, E - Plan Anesthesia: General TIVA - Discussion Discussion: Discussed risks/options/alternatives of anesthesia and questions answered. Patient consents. Nursing pain assessment noted. Present for Discussion: family member Attestation Statement: Prior to the delivery of any anesthetic medication, I examined the patient, developed the plan, obtained the patient's consent and discussed the risk and benefits of the procedure with the patient/guardian. - Additional Information Seen by Anesthesia: Yes
[2017-02-08] MEDS ORDERED: LR 1,000 ML IV SCH (10:45)
[2017-02-08] MEDS ORDERED: PROPOFOL 500 MG/50 ML VIAL ONE (10:51)
[2017-02-08] MEDS ORDERED: LIDOCAINE VISCOUS 2% ORAL LIQUID 15ml ONE (11:03)
[2017-02-08] MEDS ORDERED: LIDOCAINE VISCOUS 2% ORAL LIQUID 15ml PO ONE (11:20)
[2017-02-08] MEDS ORDERED: SALINE FLUSH 10ml SYRINGE ONE (11:23)
[2017-02-08] MEDS ORDERED: PHENYLEPHRINE INJ 10 MG/ML VIAL IV ONE (11:23)
[2017-02-08] MEDS ORDERED: PROPOFOL 20 ML ONE (11:24)
--- NOTE | 2017-02-08 11:36 | Progress Note ---
- Date 02/08/17 Subjective: Alaina states she is about same as yesterday. She continues to feel lightheaded and unsteady when she is ambulatory. She becomes short of breath with activity. She did not rest very well last night because of the bowel prep. She is scheduled for EGD and colonoscopy today. Objective Vital signs: Temperature 98.5 F 02/08/17 08:02 Pulse Rate 73 02/08/17 08:02 Respiratory Rate 16 02/08/17 08:02 Blood Pressure 121/68 02/08/17 08:02 Pulse Oximetry 97 02/08/17 08:02 Height/Weight/BMI: Height 1.63 m Weight 105.4 kg Body Mass Index 40.6 - Constitutional Present: no acute distress, well nourished, well developed, obese - Routine HEENT Exam Head: Present: normocephalic ENT: Present: oropharynx clear - Routine Respiratory Exam Present: CTA bilaterally - Routine Cardiovascular Exam Present: RRR, S1, S2, murmur - Routine Abdominal Exam Present: soft, normoactive bowel sounds, non tender - Routine Extremities Exam Present: no edema, pulses intact - Routine Skin Exam Present: intact, dry, pallor, warm - Routine Neurological Exam Present: alert, oriented X3, normal speech - Routine Psychiatric Exam Present: normal affect, normal thought process, cooperative Results - Labs CBC & Chem 7: 02/08/17 04:35 02/08/17 04:35 Assessment and Plan (1) GI bleed Current visit: Yes Status: Resolved Assessment and Plan: Assessment GI bleed with acute blood loss anemia Macrocytic anemia, iron deficiency anemia Hypokalemia, not present on admission Atrial fibrillation, previously on Xarelto Hypertension Plan EGD and colonoscopy scheduled today per Dr. Pereira Hemoglobin stable at 8.0 Mild hypokalemia, will replace potassium when diet is advanced Discussed follow-up with Dr. Katz for further instruction on anticoagulation , but this is pending results of scopes today Possible discharge home later today DVT Prophylaxis: SCD's GI Prophylaxis: Protonix Resuscitation Status: Full Code - Physician Narrative Physician: Amanda Stahl MD Narrative: Date: 02/08/17 Time: 1430 I have independently evaluated and examined this patient. I reviewed the chart, the patient's history, and the GRAVITY PROSPECTING OPERATOR HELPER/PA's documented findings as above. We discussed and formulated the assessment and plan as above with additions as below: Mrs. El was seen shortly after returning from endoscopic studies. She denied discomfort and was aware that no ulcers or esophagitis were identified at endoscopy. 3 polyps were found at colonoscopy in addition to diverticulitis without stigmata of recent GI bleed. Patient reports that she was been having dyspeptic symptoms associated with reflux at night prior to hospitalization which have resolved on higher dose PPI. Benign abdomen, no tenderness on palpation and bowel sounds present EGD/colonoscopy as above-findings discussed with Dr. Pereira. Stable for discharge-will increase omeprazole to twice a day dosing short-term given symptomatic improvement despite lack of endoscopic findings. Patient advised to remain off of Xarelto at present and follow-up with Dr. Beyer and Sterling in the near future to recheck hemoglobin and discuss future anticoagulation. Hospital Course Summary Disclaimer: The visit summary below is not to be considered part of the above Progress Note. Hospital Course: 02/06/17 17:11 Pt comes in from office for GI bleed. Will treat with PPI and consult surgery for EGD/Colonoscopy. Pt stable,vitals stable. Pt even reports her BMs have gone back to normal now. Pt okay to have on floor. 02/07/17 16:36 Hemoglobin stable overnight, Hemoccult negative. Macrocytic anemia with iron deficient indices-iron sulfate to be initiated. Remains symptomatic with exertional dyspnea and generalized weakness. Remains on liquid diet in anticipation of EGD/colonoscopy in 1-[address] Pereira.
--- NOTE | 2017-02-08 11:37 | Consultation ---
DATE OF CONSULTATION 02/07/2017 CONSULTING PHYSICIAN Carlos Pereira MD REQUESTING PHYSICIAN Dr. Santana. REASON FOR CONSULTATION GI bleed. IMPRESSION 1. Melanotic stools. 2. Acute blood loss anemia secondary to GI blood loss. 3. Daily use of Xarelto. 4. Atrial fibrillation. RECOMMENDATIONS 1. I do feel that Alaina should have both upper and lower endoscopy to investigate for the source of her melena. 2. Given her recent use of Xarelto (yesterday morning) she will need to be off of her Xarelto for 48 hours prior to the procedures. 3. I will give her a bowel prep today in anticipation of endoscopies tomorrow. 4. Continue to follow hemoglobin trend. HISTORY OF PRESENT ILLNESS Alaina is an 81-year-old female who noticed black stools that started just under two weeks ago. She was having daily black stools up until two days ago when she had simply a dark stool. Yesterday her stool was normal. She denies any abdominal pain during the two-week time frame. She was seen in the clinic at [facility] and was noted to have a drop in her hemoglobin down to 7.9 so she was admitted to the hospitalist service for investigation of her problems. The patient reports that she has a history of internal hemorrhoids and notices occasional bright red blood after straining with a bowel movement but she has not had that trouble lately. Her last colonoscopy was approximately ten years ago by Dr. Richardson. She does use Prilosec daily and has for many years. She uses ibuprofen on an as-needed basis but not with regularity. She is on Xarelto for atrial fibrillation. Her last dose of Xarelto was yesterday morning. She has noticed that fatigue and dizziness and lightheadedness. She has also been more short of breath with exertion. Hemoglobin trend in the hospital at [facility] has ranged from 7.4 to 7.9. PAST MEDICAL HISTORY 1. Atrial fibrillation. 2. Breast cancer (right-sided in 1989, recurrence on the right and left breast cancer in November 2001. She had bilateral mastectomies in 2001 with adjuvant chemotherapy but no radiation. 3. Arthritis. 4. Degenerative disc disease. 5. Gastroesophageal reflux disease. 6. Hypertension. 7. Kidney stones. 8. Shingles. 9. Peripheral neuropathy. 10. Cataracts status post left cataract excision. She does have a right cataract that has not been excised. 11. Macular degeneration. PAST SURGICAL HISTORY 1. Right breast lumpectomy - 1989. 2. Bilateral mastectomy - 11/2001. 3. Left Port-A-Cath placement. 4. Total abdominal hysterectomy with bilateral salpingo-oophorectomy with incidental appendectomy. 5. Laparoscopic cholecystectomy. 6. Left cataract removal. 6. Pacemaker placement - 2013. 7. Excision of esophageal mass endoscopically - 02/09/[address] Richardson. ALLERGIES Reglan. MEDICATIONS The patient's home medications were reviewed. She is on Xarelto. SOCIAL HISTORY The patient is . She is a former smoker and quit in approximately 1996. She has a daughter who is 61 and a son who is 54. FAMILY HISTORY Father - Hodgkin's disease. Mother - hypertension. REVIEW OF SYSTEMS Ten-point review of systems was negative except for History of Present Illness and the following: MUSCULOSKELETAL: She reports left knee pain and she does use a cane for ambulation. NEUROLOGIC: She has had numbness of both feet. This had been investigated and was thought to be due to nerve impingement at the level of the spine. PHYSICAL EXAMINATION VITAL SIGNS: Temperature 97.9, pulse 88, blood pressure 120/86, respiratory rate 14, oxygen saturation 95% on room air. GENERAL: The patient is awake and alert, in no acute distress. HEENT: Sclerae clear. Extraocular muscles intact. NECK: Supple with a midline trachea. No lymphadenopathy or thyromegaly noted. HEART: Regular rate and rhythm. LUNGS: Clear to auscultation bilaterally. ABDOMEN: Soft, nontender, nondistended. No masses, fluid, organomegaly, guarding or rebound are noted. EXTREMITIES: No clubbing, cyanosis or edema. NEUROLOGIC: Cranial nerves II-XII are grossly intact. PSYCHIATRIC: Normal mood and affect. LABORATORY Hemoglobin has ranged from 7.4 to 7.9. PATIENT EDUCATION The details, risks and benefits of endoscopy were discussed with the patient and her . The discussion included but was not limited to bleeding, perforation requiring surgical repair, aspiration, missed lesions, and complications of anesthesia. She voiced understanding and did wish to proceed with upper and lower endoscopy. KAY
--- NOTE | 2017-02-08 11:43 | General Surgery Procedure Note ---
Date of Procedure: 02/08/17 Surgeon: Randall ASA Score: 3, E Postoperative Diagnosis: Colon polyps x3, melena (no clear source), mild pandiverticulosis, moderate internal and external hemorrhoids, EGD normal. Procedure: EGD, colonoscopy with polypectomy
--- NOTE | 2017-02-08 11:58 | Anesthesia Postoperative Note ---
- Date and Time Date: 02/08/17 Time: 11:57 - Status Patient Participated in Evaluation: Patient Participated in Person Vital Signs: Temperature 97.8 F 02/08/17 11:42 Pulse Rate 72 02/08/17 11:55 Respiratory Rate 20 02/08/17 11:55 Blood Pressure 90/55 02/08/17 11:55 Pulse Oximetry 91 02/08/17 11:55 Respiratory Function: Airway Patent Cardiovascular Function: Regular Pulse EKG: Sinus Rhythm Mental Status: Alert and Oriented Pain Intensity: 0 Hydration: IV Infusing Complications During Recover: None Apparent - Follow-Up Instructions Instructions: Per Surgeon
[2017-02-08 12:42] VITALS: RESP 18; TEMP 97.8
--- NOTE | 2017-02-08 13:02 | Operative Note ---
DATE OF OPERATION 02/08/2017 SURGEON Carlos Pereira MD PREOPERATIVE DIAGNOSES 1. GI bleed with melena. 2. Acute blood loss anemia secondary to GI bleeding. POSTOPERATIVE DIAGNOSES 1. GI bleed with melena - resolved. 2. Less-than-0.5-cm ascending colon polyp. 3. Less-than-0.5-cm descending colon polyp. 4. 1-cm pedunculated proximal rectal polyp. 5. Mild pandiverticulosis. 6. Moderate internal and external hemorrhoids. 7. Small hiatal hernia. PROCEDURE 1. Esophagogastroduodenoscopy. 2. Colonoscopy with hot biopsy forceps polypectomy x 2 and hot snare polypectomy x 1. ANESTHESIA TIVA ASA Class 3E INDICATIONS The patient is an 81-year-old female who was taking Xarelto for her atrial fibrillation. She had multiple days of melanotic stools and was found to have anemia so she was admitted to the hospital. EGD and colonoscopy were recommended to investigate for a source of her melena. FINDINGS EGD was normal with no evidence of a source of bleeding. The colon showed no significant source of bleeding. There was no old blood in the colon. A few scattered diverticula were noted throughout the colon. There were moderate internal and external hemorrhoids. There were three polyps with sizes as above. DESCRIPTION OF PROCEDURE After informed consent was obtained the patient was taken to the endoscopy suite and placed in a left lateral decubitus position. IV anesthesia was administered by the anesthesia team. A bite block was inserted followed by an Olympus video gastroscope. The gastroscope was advanced down to the second portion of the duodenum under direct vision. Scope was slowly withdrawn, examining mucosa circumferentially. In the stomach the scope was retroflexed to examine the cardiac and fundic portions of the stomach. There was a sliding hiatal hernia noted. The scope was returned to a neutral position and was withdrawn while examining the esophagus circumferentially. The Z-line was sharp. The patient was repositioned for colonoscopy. She had received a MiraLAX/ Dulcolax bowel prep the day prior. A digital rectal exam was performed and showed moderate external hemorrhoids. There was no palpable abnormality internally. An Olympus video colonoscope with an AmplifEYE device was inserted and retroflexed to examine the distal rectum. Moderate internal hemorrhoids were noted. The scope was returned to a neutral position. It was advanced to the level of the cecum without difficulty. The cecum was identified by the appendiceal orifice and ileocecal valve. The scope was slowly withdrawn, examining mucosa circumferentially. In the ascending colon a small polyp was encountered. It was grasped with hot biopsy forceps and the mucosa was tented. Cautery was applied to destroy the base of the polyp and the polyp was removed and was sent to Pathology. The scope was withdrawn to the descending colon where another small polyp was encountered. It was also removed via hot biopsy forceps polypectomy technique. The scope was withdrawn to the level of the rectum and at the proximal rectum there was a 1-cm pedunculated polyp noted. It was encircled with a polypectomy snare. The mucosa was tented and cautery was used to divide the base of the polyp. It was grasped with biopsy forceps and was withdrawn along with the scope so that it could be sent to Pathology. The scope was reinserted and the carbon dioxide insufflation was evacuated. RECOMMENDATIONS 1. Change to usual PPI dose since the EGD was normal. 2. Advance diet as tolerated. 3. Await pathology results of the polyps to determine the necessary time interval for repeat colonoscopy. [id number]
--- NOTE | 2017-02-08 14:57 | Discharge Summary ---
Discharge Information Date of admission: 02/06/17 Anticipated date of discharge: 02/08/17 Attending Physician: Amanda Stahl MD Primary care physician: Joby Beyer MD Consults: Carlos Pereira - Discharge Diagnosis (1) GI bleed Status: Resolved GI bleed with acute blood loss anemia - resolved Macrocytic anemia, iron deficiency anemia Hypokalemia, not present on admission Atrial fibrillation, previously on Xarelto Hypertension - Procedures Procedures: PROCEDURE 1. Esophagogastroduodenoscopy. 2. Colonoscopy with hot biopsy forceps polypectomy x 2 and hot snare polypectomy x 1. POSTOPERATIVE DIAGNOSIS: Colon polyps x3, melena (no clear source), mild pandiverticulosis, moderate internal and external hemorrhoids, EGD normal. - Laboratory Labs: 02/08/17 04:35 02/08/17 04:35 - Pathology Polyps sent for pathology; report pending. History of Present Illness HPI: reports black tarry stools for the last 12 days or so. Pt has also been fatigued and has had exertional dyspnea. Pt denies any cp, n/v/d, f/c. Pt denies any previous such episodes. Pt last had a colonoscopy 10 years ago and reports they took out some polyps and recommended she come back in 10 years but she has not had one since. Pt denies any weight loss or night sweats. Pt denies any epigastric pain. Pt does have GERD and takes prilosec daily and has been taking that for a long time. Pt takes ibuprofen may be every couple of weeks when she really needs it for the arthritis but otherwise uses tylenol. Objective Vital signs: Temperature 97.8 F 02/08/17 12:39 Pulse Rate 71 02/08/17 13:54 Respiratory Rate 18 02/08/17 12:39 Blood Pressure 129/63 02/08/17 13:54 Pulse Oximetry 92 02/08/17 13:54 Height/Weight/BMI: Height 1.63 m Weight 105.4 kg Body Mass Index 40.6 Hospital Course This is a general summary of the patient's hospital course. For more details refer to the complete medical record. Hospital course: 02/06/17 17:11 Pt comes in from office for GI bleed. Will treat with PPI and consult surgery for EGD/Colonoscopy. Pt stable,vitals stable. Pt even reports her BMs have gone back to normal now. Pt okay to have on floor. 02/07/17: Xarelto on hold. Hemoglobin stable overnight, Hemoccult negative. Macrocytic anemia with iron deficient indices (iron 25, % sat = 8) - iron sulfate initiated. Remains symptomatic with exertional dyspnea and generalized weakness. Remains on liquid diet in anticipation of EGD/colonoscopy in 1-2 days. 02/08/17: Underwent EGD/colonoscopy per Dr. Pereira. EGD was unremarkable but did show a sliding hiatal hernia; colon did not show signs of bleeding but there were scattered diverticula and internal and external hemorrhoids and 3 polyps were removed and sent to pathology. Her diet was advanced post-procedure and she tolerated a regular diet well. Hgb was 8.0 on day of discharge; vitamin B12 was still pending. K decreased to 3.4 and KDur was given prior to discharge. She was instructed to stop taking Xarelto; in addition she should avoid ASA, ibuprofen, and naproxen. We discussed f/u - she intends to follow up with both Dr. Katz and Dr. Beyer regarding further investigation into GI bleed and when to resume anticoagulation. Iron and PPI were added to her medication list at discharge. Recommend increasing omeprazole to BID for improved GERD control. DC plans were reviewed with Alaina and she was in agreement and without further questions. Time spent with patient: discharge greater than 30 minutes GI Prophylaxis: Protonix Discharge Plan - Discharge Disposition Discharge Date: 02/08/17 Disposition: 01 Discharged Home, Self-Care *Condition: Stable Reason For Visit (Visit label in EMR): Anemia - Discharge Medications *Discharge Medications: New Ferrous Sulfate [Feosol] 324 mg PO WB tab Continue Carvedilol 1 tab PO BID #0 Losartan Potassium [Cozaar] 50 mg PO BID Multivitamins W-Minerals/Lut (Centrum Silver Tablet) 1 tab PO DAILY #0 Acetaminophen [Acetaminophen 8 Hour] 2 tab PO Q8H PRN #0 tab PRN Reason: PAIN Vit A/Vit C/Vit E/Zinc/Copper [Preservision Areds Softgel] 1 each PO BID Changed Omeprazole Magnesium [Prilosec Otc] 1 tab PO BID #0 Discontinued Rivaroxaban [Xarelto] 1 tab PO DAILY #0 - Discharge Packet/Instructions *Diet: Heart Healthy (low fat, low sodium) *Activity: Change positions slowly; do not pool. Use your cane or a walker until you feel steady on your feet. *Pain Management/Treatment: Tylenol if needed. Avoid ibuprofen, naproxen, aspirin. *Wound Care: N/A Additional Instructions: Start taking iron along with your daily multivitamin. Increase Prilosec to twice a day (morning and night) to improve reflux symptoms. *Expected Signs/Symptoms: You may feel lightheaded and short of breath with exertion for a few weeks. This should improve with time as your body makes new red blood cells and with iron supplementation. *Notify Physician if: Abdominal pain or bloating; fever; difficulty breathing; red/black stools; vomiting blood; passing out or nearly passing out; chest pain or palpitations; or any new concerns *During Business Hours Contact: Dr. Pereira's office. Dr. Katz's office. Dr. Beyer's office *After Business Hours Contact: The on-call provider for Dr. Pereira, Dr. Katz, and/or Dr. Beyer *Pending Lab/Results: Follow up w/your PCP (colon polyps were sent to pathology ; vitamin B level still pending) - Referrals/Follow Up *Referrals/Follow Up: Joby Beyer MD [Family Provider] - 1 Week Bulmaro Katz MD [Physician] - 2 Weeks (Xarelto has been discontinued due to GI bleed.) Carlos Pereira MD [Physician] - 1 Month (if needed) - Patient Handouts - Dismissal Complete Discharge Instructions are:: Complete Physician Narrative - Narrative Physician: Amanda Stahl MD Attestation Narrative: Date: 02/08/17 Time: 1600 I have independently evaluated and examined this patient. I reviewed the chart, the patient's history, and the SIGNAL TIMER/PA's documented findings as above. We discussed and formulated the assessment and plan as above with additions as below: Mrs. El was seen shortly after returning from endoscopic studies. She denied discomfort and was aware that no ulcers or esophagitis were identified at endoscopy. 3 polyps were found at colonoscopy in addition to diverticulitis without stigmata of recent GI bleed. Patient reports that she was been having dyspeptic symptoms associated with reflux at night prior to hospitalization which have resolved on higher dose PPI. Benign abdomen, no tenderness on palpation and bowel sounds present EGD/colonoscopy as above-findings discussed with Dr. Pereira. Stable for discharge-will increase omeprazole to twice a day dosing short-term given symptomatic improvement despite lack of endoscopic findings. Patient advised to remain off of Xarelto at present and follow-up with Dr. Beyer and Sterling in the near future to recheck hemoglobin and discuss future anticoagulation.
[2017-02-08 15:00] VITALS: BP 118/65; PULSE 78; O2SAT 99
[2017-02-08] MEDS ORDERED: OMEPRAZOLE 20 MG CAPSULE PO SCH (21:00)
[2017-02-09] MEDS ORDERED: FERROUS SULFATE 324 MG TABLET PO SCH (08:00)
== END 2017-02-08 16:56 | disposition home or self-care (01) ==
LOC: SUATTDRO → SUR 14:08 → SRG 14:08 → SUR 02-08 16:55
PROVIDERS: ADMIT Internal Medicine; ATTEND Internal Medicine
PROC: END.EGD (2017-02-08 11:00)